=== PATIENT | female | born 1955 | race Caucasian/White ===

== ENCOUNTER 2018-01-27 21:15 | Inpatient (IN) ==
[2018-01-27] MEDS ORDERED: Ipratropium/Albuterol Neb 3 ML IH ONE (21:31)
--- NOTE | 2018-01-27 21:42 | Emergency Department Note ---
Disposition Clinical Impression: Acute dyspnea Community acquired pneumonia Qualifiers: Laterality: left Lung location: unspecified part of lung Qualified Code(s): J18.9 - Pneumonia, unspecified organism Fever Qualifiers: Fever type: unspecified Qualified Code(s): R50.9 - Fever, unspecified Disposition: Admitted As Inpatient Condition: Undetermined Referrals: Landon Champion MD [Primary Care Provider] - Forms: ED Satisfaction Letter Time of Disposition: 00:56 SOB HPI - General Chief Complaint: ED Shortness of Breath/Dyspnea Stated Complaint: SOB/Wheezy Time Seen by Provider: 01/27/18 21:27 Source: patient Mode of arrival: ambulatory Limitations: no limitations Nursing Notes Reviewed: Yes Vital Signs Reviewed: Yes - History of Present Illness 62-year-old female arrives to the emergency department with complaint of cough and shortness of breath. The patient states that she was recently diagnosed with a left lower lobe pneumonia was treated with Augmentin. The patient states that she is continued to experience symptoms has progressively worsened over the past 72 hours. The patient states she has had intermittent fever since then and her last fever was roughly 1 day ago when it was 101 degrees Fahrenheit. She admits to intermittent episodes of hemoptysis which is not unusual for her. The patient denies any unilateral leg swelling, DVT or PE, recent surgeries or recent immobilizations. Patient denies any other complaints at this time. She is resting comfortably in the room is not hypoxic. - Related Data Home Medications Medication Instructions Recorded Confirmed Albuterol Sulfate [Proair Hfa] 2 puff IH Q4H PRN 09/16/16 12/05/16 Budesonide/Formoterol 160/4.5 2 puff IH BIDR 09/16/16 12/05/16 [Symbicort 160/4.5] Cholecalciferol (D-3) [Vitamin D] 2,000 unit PO DAILY 09/16/16 12/05/16 Escitalopram [Lexapro] 20 mg PO DAILY 09/16/16 12/05/16 Imipramine HCl [Tofranil] 25 mg PO HS 09/16/16 12/05/16 Levothyroxine [Levothyroxine 137 mcg PO DAILY 09/16/16 12/05/16 Sodium] Meloxicam [Mobic] 15 mg PO DAILY 09/16/16 12/05/16 Ropinirole HCl [Requip] 0.5 mg PO HS 09/16/16 12/05/16 Cyclobenzaprine [Flexeril] 10 mg PO HS 12/05/16 12/05/16 Tadalafil [Cialis] 5 mg PO DAILY 12/05/16 12/05/16 Previous Rx's Medication Instructions Recorded Azithromycin [Zithromax] 250 - 500 mg PO DAILY #6 tablet 09/13/17 Benzonatate [Tessalon] 200 mg PO TID PRN #30 capsule 09/13/17 predniSONE [PredniSONE] 40 mg PO DAILY #10 tablet 09/13/17 Amoxicillin/Clavulanate [Augmentin] 875 mg PO BIDWM #20 tablet 01/10/18 Allergies Allergy/AdvReac Type Severity Reaction Status Date / Time morphine Allergy Redness of Verified 01/10/18 15:49 Skin Iodinated Contrast- Oral and AdvReac Flushing Verified 01/10/18 15:49 IV Dye All systems ED: reviewed and negative except as stated. Constitutional: Reports: fever. Denies: chills, weakness ENT ED: Denies: congestion Cardiovascular: Denies: chest pain, dyspnea on exertion Respiratory: Reports: cough, dyspnea, sputum production. Denies: wheezes Gastrointestinal: Denies: abdominal pain, nausea, vomiting Genitourinary: Denies: urgency, dysuria Musculoskeletal: Denies: back pain Integumentary: Denies: rash Neurological: Denies: headache Past Medical History - Past Medical History Attestation: Yes The following information was validated with the patient. Source: patient, old records reviewed Medical history: Reports: arthritis, COPD, fibromyalgia, GERD, thyroid disease, other Surgical history: Reports: cholecystectomy (1977), hysterectomy (with unilateral salpingo-oophorectomy 2010), knee replacement, orthopedic, other ( Left rotator cuff; Back laminectomy L4-L5; surgery to foot, toes, ankle), other (Previous trach; Tonsillectomy; Brain aneurysm repair [facility] 05/12/2014; Inner stimulator for bladder Dr. 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 history: Reports: anxiety, depression [employer]WE[employer] H[employer]MER history: Reports: bilateral tubal ligation - Social History Smoking Status: Never smoker Smokeless Tobacco Status: No Alcohol use: Reports: none Drug use: Reports: none Physical Exam - General Limitations: no limitations General appearance: alert, in no apparent distress - Head Head exam: atraumatic, normocephalic, normal inspection - Eye Eye exam: Present: normal appearance, PERRL, EOMI - ENT ENT exam: normal exam, normal oropharynx, mucous membranes moist - Neck Neck exam: Present: normal inspection, full ROM, trachea midline - Chest Chest inspection: Present: normal inspection, symmetric chest wall rise - Respiratory Respiratory exam: Present: other (Decreased sounds on left compared to right) - Cardiovascular Cardiovascular exam: Present: regular rate, normal rhythm, normal heart sounds - Abdominal Exam Abdominal exam: Present: soft, Non-Tender. Absent: tenderness, distention, guarding, rebound, rigidity - Extremities Exam Extremities exam: Present: normal inspection, full ROM. Absent: tenderness, pedal edema - Neurological Exam Neurological exam: Present: alert, oriented X3 - Skin Skin exam: Present: warm, dry, intact, normal color Course Vital Signs Temperature 98.1 F 01/27/18 21:21 Pulse Rate 77 01/27/18 21:21 Respiratory Rate 20 01/27/18 21:21 Blood Pressure 154/84 01/27/18 21:21 O2 Sat by Pulse Oximetry 97 01/27/18 21:21 Temperature 98.1 F 01/27/18 21:21 Pulse Rate 88 01/27/18 22:50 Respiratory Rate 18 01/27/18 22:50 Blood Pressure 139/87 01/27/18 22:50 O2 Sat by Pulse Oximetry 94 01/27/18 22:50 Oxygen Delivery Oxygen Delivery Room Air Shortness of Breath/Dyspnea - [facility] Narrative Medical decision making narrative: Workup in the emergency department demonstrates left lingular pneumonia. Given the patient's failed outpatient treatment we will start the patient on levofloxacin admit the patient to the hospital. The patient was accepted by Dr. Thao. No further questions or concerns noted. - Medical Records Medical records reviewed: Yes I reviewed the patient's medical records. - Lab Data Lab results reviewed: Yes I reviewed the patient's lab results. Result diagrams: 01/28/18 00:09 01/28/18 00:09 Lab Results 01/28/18 01/28/18 Range/Units 00:09 00:09 WBC 10.5 (4.3-11.1) K/mcL RBC 4.70 (3.82-4.97) M/mcL Hgb 13.9 (11.5-15.4) g/dL Hct 42.0 (35.3-44.9) % MCV 89.4 (83.0-100.0) fL MCH 29.6 (28.0-33.3) pg MCHC 33.1 (31.6-35.5) g/dL RDW 12.9 (11.5-14.5) % Plt Count 225 (140-400) K/mcL MPV 10.8 (9.4-12.4) fL Immature Gran % 0.4 (0-4) % Seg Neutrophils % 73.2 % Lymphocytes % 19.5 % Monocytes % 5.8 % Eosinophils % 0.8 % Basophils % 0.3 % Neutrophils # 7.7 (1.6-8.9) K/mcL Lymphocytes # 2.0 (0.6-4.6) K/mcL Monocytes # 0.6 (0.0-1.3) K/mcL Eosinophils # 0.1 (0.0-0.6) K/mcL Basophils # 0.0 (0.0-0.2) K/mcL Sodium 136 (136-145) mEq/L Potassium 3.4 L (3.5-5.1) mEq/L Chloride 103 (98-107) mEq/L Carbon Dioxide 28 (23-29) mEq/L BUN 13 (8-23) mg/dL Creatinine 0.76 (0.60-1.20) mg/dL Est GFR ( Amer) > 60 (> 60) Est GFR (Non-Af Amer) > 60 (> 60) BUN/Creatinine Ratio 17 (6-26) Glucose 125 H (70-105) mg/dL Calculated Osmolality 284 (280-300) Calcium 9.7 (8.6-10.3) mg/dL - Radiology Data Radiology results reviewed: Yes I reviewed the patient's radiology results. Chest X-Ray 01/27/18 21:31 IMPRESSION: Mild improvement in left mid lung pneumonia. D/ / Jp Humphries MD / Jp Humphries MD Interpreting Provider: Jp Humphries MD Chest CT 01/27/18 21:44 IMPRESSION: Confluent airspace disease with air bronchograms in the lingula consistent with pneumonia. Mildly prominent mediastinal lymph nodes are likely reactive. Continued follow-up to complete clearing is recommended. No evidence of an obstructing bronchial lesion. Mild narrowing of the left mainstem bronchus like related to mucous. Stable 2.3 cm splenic artery aneurysm. D/ / Charanjit Wadsworth MD / Charanjit Wadsworth MD Interpreting Provider: Charanjit Wadsworth MD
--- NOTE | 2018-01-27 22:05 | Emergency Department Note ---
Disposition Clinical Impression: Community acquired pneumonia, Acute dyspnea, Fever Disposition: Admitted As Inpatient Condition: Undetermined General Adult HPI - General Chief complaint: ED Shortness of Breath/Dyspnea Stated complaint: SOB/Wheezy Time Seen by Provider: 01/27/18 21:27 Source: patient Mode of arrival: ambulatory Limitations: no limitations Nursing Notes Reviewed: Yes Vital Signs Reviewed: Yes - History of Present Illness Pain Scale: 3 - Related Data Home Medications Medication Instructions Recorded Confirmed Albuterol Sulfate [Proair Hfa] 2 puff IH Q4H PRN 09/16/16 12/05/16 Budesonide/Formoterol 160/4.5 2 puff IH BIDR 09/16/16 12/05/16 [Symbicort 160/4.5] Cholecalciferol (D-3) [Vitamin D] 2,000 unit PO DAILY 09/16/16 12/05/16 Escitalopram [Lexapro] 20 mg PO DAILY 09/16/16 12/05/16 Imipramine HCl [Tofranil] 25 mg PO HS 09/16/16 12/05/16 Levothyroxine [Levothyroxine 137 mcg PO DAILY 09/16/16 12/05/16 Sodium] Meloxicam [Mobic] 15 mg PO DAILY 09/16/16 12/05/16 Ropinirole HCl [Requip] 0.5 mg PO HS 09/16/16 12/05/16 Cyclobenzaprine [Flexeril] 10 mg PO HS 12/05/16 12/05/16 Tadalafil [Cialis] 5 mg PO DAILY 12/05/16 12/05/16 Previous Rx's Medication Instructions Recorded Azithromycin [Zithromax] 250 - 500 mg PO DAILY #6 tablet 09/13/17 Benzonatate [Tessalon] 200 mg PO TID PRN #30 capsule 09/13/17 predniSONE [PredniSONE] 40 mg PO DAILY #10 tablet 09/13/17 Amoxicillin/Clavulanate [Augmentin] 875 mg PO BIDWM #20 tablet 01/10/18 Allergies Allergy/AdvReac Type Severity Reaction Status Date / Time morphine Allergy Redness of Verified 01/10/18 15:49 Skin Iodinated Contrast- Oral and AdvReac Flushing Verified 01/10/18 15:49 IV Dye Constitutional: Reports: fever. Denies: chills, weakness ENT ED: Denies: congestion Cardiovascular: Denies: chest pain, dyspnea on exertion Respiratory: Reports: cough, dyspnea, sputum production. Denies: wheezes Gastrointestinal: Denies: abdominal pain, nausea, vomiting Genitourinary: Denies: urgency, dysuria Musculoskeletal: Denies: back pain Integumentary: Denies: rash Neurological: Denies: headache Past Medical History - Past Medical History Medical history: Reports: arthritis, COPD, fibromyalgia, GERD, thyroid disease, other Surgical history: Reports: cholecystectomy (1977), hysterectomy (with unilateral salpingo-oophorectomy 2010), knee replacement, orthopedic, other ( Left rotator cuff; Back laminectomy L4-L5; surgery to foot, toes, ankle), other (Previous trach; Tonsillectomy; Brain aneurysm repair [facility] 05/12/2014; Inner stimulator for bladder Dr. 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 - Social History Smoking Status: Never smoker Smokeless Tobacco Status: No Alcohol use: Reports: none Drug use: Reports: none Physical Exam - General Limitations: no limitations General appearance: alert, in no apparent distress Course Vital Signs Temperature 98.1 F 01/27/18 21:21 Pulse Rate 77 01/27/18 21:21 Respiratory Rate 20 01/27/18 21:21 Blood Pressure 154/84 01/27/18 21:21 O2 Sat by Pulse Oximetry 97 01/27/18 21:21 Temperature 98.1 F 01/27/18 21:21 Pulse Rate 88 01/27/18 22:50 Respiratory Rate 18 01/27/18 22:50 Blood Pressure 139/87 01/27/18 22:50 O2 Sat by Pulse Oximetry 94 01/27/18 22:50 Oxygen Delivery Oxygen Delivery Room Air Medical Decision Making - Lab Data Result diagrams: 01/28/18 00:09 01/28/18 00:09 Lab Results 01/28/18 01/28/18 Range/Units 00:09 00:09 WBC 10.5 (4.3-11.1) K/mcL RBC 4.70 (3.82-4.97) M/mcL Hgb 13.9 (11.5-15.4) g/dL Hct 42.0 (35.3-44.9) % MCV 89.4 (83.0-100.0) fL MCH 29.6 (28.0-33.3) pg MCHC 33.1 (31.6-35.5) g/dL RDW 12.9 (11.5-14.5) % Plt Count 225 (140-400) K/mcL MPV 10.8 (9.4-12.4) fL Immature Gran % 0.4 (0-4) % Seg Neutrophils % 73.2 % Lymphocytes % 19.5 % Monocytes % 5.8 % Eosinophils % 0.8 % Basophils % 0.3 % Neutrophils # 7.7 (1.6-8.9) K/mcL Lymphocytes # 2.0 (0.6-4.6) K/mcL Monocytes # 0.6 (0.0-1.3) K/mcL Eosinophils # 0.1 (0.0-0.6) K/mcL Basophils # 0.0 (0.0-0.2) K/mcL Sodium 136 (136-145) mEq/L Potassium 3.4 L (3.5-5.1) mEq/L Chloride 103 (98-107) mEq/L Carbon Dioxide 28 (23-29) mEq/L BUN 13 (8-23) mg/dL Creatinine 0.76 (0.60-1.20) mg/dL Est GFR ( Amer) > 60 (> 60) Est GFR (Non-Af Amer) > 60 (> 60) BUN/Creatinine Ratio 17 (6-26) Glucose 125 H (70-105) mg/dL Calculated Osmolality 284 (280-300) Calcium 9.7 (8.6-10.3) mg/dL Critical Care Time Critical Care Time: No Attestation Statement - Attestation Attestation: I, Beltran Kwan MD, personally evaluated this patient and discussed their management with the resident physician. I reviewed the resident's note and agree with the documented findings, medical decision making, and plan of care. 62-year-old female presents to the emergency department with a complaint of productive cough with cloudy blood tinged sputum and intermittent fever. She has had these symptoms for several weeks. She was seen in over 2 weeks ago at urgent care and had a chest x-ray which showed a left mid lung infiltrate with questionable underlying mass. She was treated with Augmentin for 10 days which she has finished. She presents here tonight complaining that she has continued to run intermittent fevers and continued to have the cough with productive sputum and blood tinged sputum. She complains of wheezing and shortness of breath. On examination patient is a well-developed obese elderly female in no acute distress. She is alert and oriented 3. There is no cyanosis or diaphoresis. Chest is nontender to palpation. Breath sounds are equal bilaterally. No definite rales or wheezes noted. Heart regular rate and rhythm. Abdomen is soft and nontender with normal bowel sounds. Labs reviewed. Chest x-ray shows some mild improvement in the left mid lung pneumonia. A CT was obtained which showed the left lingula pneumonia and did not show any discrete mass. Since patient has already had a 10 day course of outpatient antibiotics we will go ahead and admit the patient for failed outpatient treatment of left pneumonia. The hospitalist, Dr. Thao, was consulted and accepted admission of the patient.
[2018-01-27] MEDS ORDERED: Levofloxacin 750 MG/150 ML 750 MG/150 ML BAG IVPB ONE (23:37)
[2018-01-28 00:20] LABS: Basophils % 0.3 %; Eosinophils # 0.1 K/mcL (0.0-0.6); Eosinophils % 0.8 %; Hemoglobin 13.9 g/dL (11.5-15.4); Immature Granulocytes % 0.4 % (0-4); Lymphocytes % 19.5 %; Mean Corpuscular HGB Conc 33.1 g/dL (31.6-35.5); Mean Corpuscular Hemoglobin 29.6 pg (28.0-33.3); Mean Corpuscular Volume 89.4 fL (83.0-100.0); Mean Platelet Volume 10.8 fL (9.4-12.4); Monocytes # 0.6 K/mcL (0.0-1.3); Monocytes % 5.8 %; Neutrophils # 7.7 K/mcL (1.6-8.9); Platelet Count 225 K/mcL (140-400); Red Cell Distribution Width 12.9 % (11.5-14.5); Segmented Neutrophils % 73.2 %
[2018-01-28 00:39] LABS: BUN/Creatinine Ratio 17 (6-26); Blood Urea Nitrogen 13 mg/dL (8-23); Calcium 9.7 mg/dL (8.6-10.3); Carbon Dioxide 28 mEq/L (23-29); Chloride 103 mEq/L (98-107); Glucose 125 mg/dL (70-105); Osmolality,Calculated 284 (280-300); Potassium 3.4 mEq/L (3.5-5.1); Sodium 136 mEq/L (136-145); eGFR For African Americans > 60 (> 60); eGFR For Non-African Americans > 60 (> 60)
[2018-01-28] MEDS ORDERED: Naloxone 0.4 MG/ML INJ IVP PRN (01:28)
[2018-01-28] MEDS ORDERED: Acetaminophen 325 MG TABLET PO PRN (01:28)
--- NOTE | 2018-01-28 01:34 | Internal Med History&Physical ---
Date of Encounter: 01/28/18 Time of Encounter: Internal Medicine - H&P: HPI Chief complaint: Cough Admitted From: Emergency Dept Plans for Post Hospital Care: Home History of present illness: Ms. Naylor is a 62 year old female with history of arthritis, COPD, fibromyalgia, GERD, Hypothyroidism, Splenic aneurysm presented to the ED to get evaluated for fever and unresolved shortness of breath and cough. Cough is productive of pinkish to dark sputum. Symptoms have been present for a couple of weeks or so. Went to urgent care and given Augmentin for 10 days which she finished with symptoms not improving. Fever is as high as 102 at home. In the ED was afebrile and hemodynamically stable. Laboratory workup showed only hypokalemia with a potassium 3.4. A chest x-ray showed improvement in her left lung pneumonia. CT chest showed left lingula pneumonia with mildly prominent mediastinal nodes which were likely reactive. She was given IV Levaquin and is being admitted for failed outpatient pneumonia treatment. Denies nausea, vomiting, chest pain, blurry vision, headache, abdominal pain, diarrhea, constipation, urinary symptoms, or neurological symptoms. Past Med Surg Social Fam HX - Past Medical History Medical history: arthritis, COPD, fibromyalgia, GERD, thyroid disease, other Psychiatric history: anxiety, depression - Past Surgical History Surgical History: cholecystectomy (1977), hysterectomy (with unilateral salpingo -oophorectomy 2010), knee replacement, orthopedic, other (Left rotator cuff; Back laminectomy L4-L5; surgery to foot, toes, ankle), other (Previous trach; Tonsillectomy; Brain aneurysm repair [facility] 05/12/2014; Inner stimulator for bladder Dr. Lopez 03/2015), vascular surgery - Social History Smoking Status: Never smoker Smokeless Tobacco Status: No Alcohol use: none Drug use: none - Family History Mother Family Member Ethnicity: Non- Living Status: Hx Family Cardiac Disorders: No Hx Family Respiratory Disorders: No Hx Family Cancer: No Hx Family GI Disorders: No Hx Family Endocrine Disorder: No Hx Family Neuromuscular Disorders: Yes Hx Family Neurologic Disorders: No Hx Family HEENT Disorders: No Hx Family Autoimmune Disorders: No Father Living Status: Internal Medicine - H&P: Meds Albuterol Sulfate [Proair Hfa] 2 puff IH Q4H PRN 09/16/16 [History] Budesonide/Formoterol 160/4.5 [Symbicort 160/4.5] 2 puff IH BIDR 09/16/16 [ History] Cholecalciferol (D-3) [Vitamin D] 2,000 unit PO DAILY 09/16/16 [History] Escitalopram [Lexapro] 20 mg PO DAILY 09/16/16 [History] Imipramine HCl [Tofranil] 25 mg PO HS 09/16/16 [History] Levothyroxine [Levothyroxine Sodium] 137 mcg PO DAILY 09/16/16 [History] Meloxicam [Mobic] 15 mg PO DAILY 09/16/16 [History] Ropinirole HCl [Requip] 0.5 mg PO HS 09/16/16 [History] Cyclobenzaprine [Flexeril] 10 mg PO HS 12/05/16 [History] Tadalafil [Cialis] 5 mg PO DAILY 12/05/16 [History] Azithromycin [Zithromax] 250 - 500 mg PO DAILY #6 tablet 09/13/17 [Rx] Benzonatate [Tessalon] 200 mg PO TID PRN #30 capsule 09/13/17 [Rx] predniSONE [PredniSONE] 40 mg PO DAILY #10 tablet 09/13/17 [Rx] Amoxicillin/Clavulanate [Augmentin] 875 mg PO BIDWM #20 tablet 01/10/18 [Rx] 3 Allergy/AdvReac Type Severity Reaction Status Date / Time morphine Allergy Redness of Verified 01/10/18 15:49 Skin Iodinated Contrast- Oral and AdvReac Flushing Verified 01/10/18 15:49 IV Dye All Systems PM: A 10-system review of systems was performed and is negative for pertinent findings except as documented above in the HPI. Review of systems: All systems reviewed are negative except as mentioned above - Constitutional Vitals: Temp Pulse Resp BP Pulse Ox 98.1 F 88 16 142/88 94 01/27/18 21:21 01/27/18 22:50 01/28/18 01:22 01/28/18 01:22 01/27/18 22:50 Exam: GEN: NAD HEENT: AT, NC, No cyanosis, oral mucosa is moist, No JVD Lymphatics: No lymphadenoapthy Eyes: Extrocular muscles intact, anicteric CVS:RRR. S1, S2, No m/r/g RESP: Coarse on the left side. No wheezes. ABD: Soft, NT, ND, +BS EXT: No edema, No rashes, 2+ DP NEURO: Nonfocal, CN II-XII intact, No focal motor or sensory deficits Psych: Cooperative, Not anxious or depressed Internal Med - H&P Results - Labs CBC & Chem 7: 01/28/18 00:09 01/28/18 00:09 - Assessment and plan (1) Community acquired pneumonia Current Visit: Yes Status: Acute Assessment and plan: Will admit due to failed outpatient treatment. Will continue IV levaquin started in the ED. Check sputum. Check respiratory panel. Check urine strep and Legionella. Follow-up on blood cultures collected in the ED.. Gentle hydration. Patient is not hypoxic. Qualifiers: Laterality: left Lung location: unspecified part of lung Qualified Code(s ): J18.9 - Pneumonia, unspecified organism (2) Hypothyroidism Current Visit: Yes Status: Acute Assessment and plan: Resume home thyroid pill Qualifiers: Hypothyroidism type: unspecified Qualified Code(s): E03.9 - Hypothyroidism , unspecified (3) COPD (chronic obstructive pulmonary disease) Current Visit: No Status: Chronic Assessment and plan: Not in exacerbation. Resume inhalers. Qualifiers: COPD type: unspecified COPD Qualified Code(s): J44.9 - Chronic obstructive pulmonary disease, unspecified (4) DVT prophylaxis Current Visit: No Status: Acute Assessment and plan: heparin SQ - Time Spent With Patient Total time spent is greater than 50% in coordination of care (as documented) at patient's floor/unit and/or counseling patient:
[2018-01-28] MEDS: 0.9 % Sodium Chloride 1,000 ML IVC SCH ×2 (03:01→16:51)
[2018-01-28] MEDS: Ipratropium/Albuterol Neb 3 ML IH SCH ×4 (04:12→22:12)
[2018-01-28 04:39] LABS: Basophils % 0.4 %; Eosinophils # 0.1 K/mcL (0.0-0.6); Eosinophils % 0.9 %; Hematocrit 40.2 % (35.3-44.9); Hemoglobin 12.9 g/dL (11.5-15.4); Immature Granulocytes % 0.4 % (0-4); Lymphocytes # 1.4 K/mcL (0.6-4.6); Lymphocytes % 18.1 %; Mean Corpuscular HGB Conc 32.1 g/dL (31.6-35.5); Mean Corpuscular Hemoglobin 28.9 pg (28.0-33.3); Mean Corpuscular Volume 89.9 fL (83.0-100.0); Mean Platelet Volume 11.2 fL (9.4-12.4); Monocytes # 0.7 K/mcL (0.0-1.3); Monocytes % 8.4 %; Neutrophils # 5.7 K/mcL (1.6-8.9); Platelet Count 199 K/mcL (140-400); Red Blood Count 4.47 M/mcL (3.82-4.97); Segmented Neutrophils % 71.8 %
[2018-01-28 04:57] LABS: BUN/Creatinine Ratio 18 (6-26); Blood Urea Nitrogen 14 mg/dL (8-23); Calcium 9.4 mg/dL (8.6-10.3); Carbon Dioxide 25 mEq/L (23-29); Chloride 105 mEq/L (98-107); Glucose 116 mg/dL (70-105); Magnesium 1.8 mg/dL (1.6-2.6); Osmolality,Calculated 285 (280-300); Potassium 3.5 mEq/L (3.5-5.1); Sodium 137 mEq/L (136-145); eGFR For African Americans > 60 (> 60); eGFR For Non-African Americans > 60 (> 60)
[2018-01-28] MEDS: *HR* Heparin 5,000 UNIT/ML VIAL SQ SCH ×3 (05:43→20:22)
[2018-01-28 06:34] LABS: Adenovirus Not Detected (Not Detect); Coronavirus 229E Not Detected (Not Detect); Coronavirus HKU1 Not Detected (Not Detect); Coronavirus NL63 Not Detected (Not Detect); Coronavirus OC43 Not Detected (Not Detect); Human Metapneumovirus Not Detected (Not Detect); Human Rhinovirus/Enterovirus Not Detected (Not Detect); Influenza A Subtype 2009 H1 Not Detected (Not Detect); Influenza A Untypeable Not Detected (Not Detect); Influenza B Not Detected (Not Detect)
[2018-01-28 06:35] LABS: Bordetella Pertussis Not Detected (Not Detect); Chlamydophila pneumoniae Not Detected (Not Detect); Mycoplasma pneumoniae Not Detected (Not Detect); Parainfluenza Virus 1 Not Detected (Not Detect); Parainfluenza Virus 2 Not Detected (Not Detect); Parainfluenza Virus 3 Not Detected (Not Detect); Parainfluenza Virus 4 Not Detected (Not Detect); Respiratory Syncytial Virus Not Detected (Not Detect)
[2018-01-28] MEDS ORDERED: Benzonatate 100 MG CAPSULE PO PRN (08:05)
[2018-01-28] MEDS: Budesonide/Formoterol 160/4.5 MDI IH SCH ×2 (10:29→22:12)
[2018-01-28] MEDS: Levofloxacin 750 MG/150 ML 750 MG/150 ML BAG IVPB SCH (16:52)
[2018-01-28] MEDS: rOPINIRole 1 MG TABLET PO SCH (20:21)
[2018-01-29] MEDS: Ipratropium/Albuterol Neb 3 ML IH SCH ×4 (04:33→21:29)
[2018-01-29] MEDS: *HR* Heparin 5,000 UNIT/ML VIAL SQ SCH ×3 (06:02→22:11)
[2018-01-29] MEDS: 0.9 % Sodium Chloride 1,000 ML IVC SCH ×3 (08:54→15:54)
--- NOTE | 2018-01-29 09:28 | Internal Med Progress Note ---
Date of Encounter: 01/29/18 Time of Encounter: 09:00 - Assessment and plan (1) Community acquired pneumonia Current Visit: Yes Status: Acute Assessment and plan: Lingular pneumonia, community-acquired, failed 10 days of Augmentin. Plan #1 Continue intravenous Levaquin #2 obtained respiratory cultures, urine antigens for Legionella and pneumococcus #3 follow blood cultures sent from the emergency room Qualifiers: Laterality: left Lung location: unspecified part of lung Qualified Code(s ): J18.9 - Pneumonia, unspecified organism (2) COPD (chronic obstructive pulmonary disease) Current Visit: No Status: Chronic Assessment and plan: Resume home Symbicort and bronchodilators as needed. May benefit from LAMA instead of Symbicort as first line therapy for COPD. Deferred to outpatient provider. Qualifiers: COPD type: unspecified COPD Qualified Code(s): J44.9 - Chronic obstructive pulmonary disease, unspecified (3) Hypothyroidism Current Visit: Yes Status: Acute Assessment and plan: Resume home thyroid pill Qualifiers: Hypothyroidism type: unspecified Qualified Code(s): E03.9 - Hypothyroidism , unspecified (4) DVT prophylaxis Current Visit: No Status: Acute Assessment and plan: heparin SQ - Time Spent With Patient Total time spent is greater than 50% in coordination of care (as documented) at patient's floor/unit and/or counseling patient: 25 - 35 minutes - Subjective Interval history: Still reports dyspnea and cough with pink expectoration. No events overnight. - Constitutional Vitals: Temp Pulse Resp BP Pulse Ox 97.8 F 71 17 138/78 95 01/29/18 07:06 01/29/18 07:06 01/29/18 07:06 01/29/18 07:06 01/29/18 07:06 General appearance: Present: A&O X 3 Exam: Physical exam Gen: Comfortable, laying in bed, in no visible distress HEENT: Normocephalic, atraumatic. No conjunctival icterus. Moist oral mucosa. Neck: Supple Lungs: Clear to auscultation, no foreign sounds Heart: Normal S1-S2, no murmurs rubs or gallops Abdomen: Normoactive bowel sounds, no guarding rigidity or tenderness Extremities: No edema clubbing or cyanosis Neuro: Alert oriented 3, no focal deficits Skin: No skin lesions Internal Medicine: Result - Labs CBC & Chem 7: 01/28/18 03:52 01/28/18 03:52 Consult Discharge Plan - Plan Referrals: Landon Champion MD [Primary Care Provider] -
[2018-01-29] MEDS: Budesonide/Formoterol 160/4.5 MDI IH SCH ×2 (10:55→21:29)
[2018-01-29] MEDS: Levofloxacin 750 MG/150 ML 750 MG/150 ML BAG IVPB SCH (17:23)
[2018-01-29] MEDS: rOPINIRole 1 MG TABLET PO SCH (20:20)
[2018-01-30] MEDS: 0.9 % Sodium Chloride 1,000 ML IVC SCH (03:33)
[2018-01-30] MEDS: Ipratropium/Albuterol Neb 3 ML IH SCH ×2 (04:09→10:57)
[2018-01-30 05:19] LABS: Basophils % 0.7 %; Eosinophils # 0.2 K/mcL (0.0-0.6); Eosinophils % 4.5 %; Hematocrit 36.2 % (35.3-44.9); Hemoglobin 11.5 g/dL (11.5-15.4); Lymphocytes # 1.5 K/mcL (0.6-4.6); Lymphocytes % 35.1 %; Mean Corpuscular HGB Conc 31.8 g/dL (31.6-35.5); Mean Corpuscular Hemoglobin 28.8 pg (28.0-33.3); Mean Corpuscular Volume 90.5 fL (83.0-100.0); Mean Platelet Volume 11.2 fL (9.4-12.4); Monocytes # 0.3 K/mcL (0.0-1.3); Monocytes % 7.1 %; Neutrophils # 2.2 K/mcL (1.6-8.9); Platelet Count 178 K/mcL (140-400); Red Cell Distribution Width 12.9 % (11.5-14.5); Segmented Neutrophils % 52.6 %
[2018-01-30 05:32] LABS: BUN/Creatinine Ratio 20 (6-26); Blood Urea Nitrogen 12 mg/dL (8-23); Calcium 9.2 mg/dL (8.6-10.3); Carbon Dioxide 22 mEq/L (23-29); Chloride 111 mEq/L (98-107); Glucose 100 mg/dL (70-105); Osmolality,Calculated 288 (280-300); Sodium 139 mEq/L (136-145); eGFR For African Americans > 60 (> 60); eGFR For Non-African Americans > 60 (> 60)
[2018-01-30] MEDS: *HR* Heparin 5,000 UNIT/ML VIAL SQ SCH (05:36)
--- NOTE | 2018-01-30 10:32 | Discharge Summary ---
- NOTES TO OUTPATIENT PROVIDER Notes to Outpatient Provider: f/u with PCP in one week. If you get more SOB / wheezing you can take Prednisone 40mg PO daily x 5 days Orders not resulted at time of discharge: Pending orders 01/29/18 09:19 Culture,Respiratory [RM] Routine Date of Encounter: 01/30/18 Time of Encounter: 10:30 - Discharge Diagnosis (1) Community acquired pneumonia Priority: Primary Status: Acute Qualifiers: Laterality: left Lung location: unspecified part of lung Qualified Code(s ): J18.9 - Pneumonia, unspecified organism (2) DVT prophylaxis Priority: Secondary Status: Acute (3) COPD (chronic obstructive pulmonary disease) Priority: Secondary Status: Chronic Qualifiers: COPD type: unspecified COPD Qualified Code(s): J44.9 - Chronic obstructive pulmonary disease, unspecified (4) Hypothyroidism Priority: Secondary Status: Acute Qualifiers: Hypothyroidism type: unspecified Qualified Code(s): E03.9 - Hypothyroidism , unspecified Hospital course: Ms. Naylor is a 62 year old female with history of arthritis, COPD, fibromyalgia, GERD, Hypothyroidism, Splenic aneurysm presented to the ED to get evaluated for fever and unresolved shortness of breath and cough. Cough is productive of pinkish to dark sputum. Pt was admitted here for pneumonia and started her on empirical abx Levaquin. Pt started breathing comfortably on RA. She feels like she is back to baseline. She does not have significant wheezing at this point. However I gave her an Rx for short course Prednisone to use it as needed basis if she gets more SOB once she goes home. Will d/c her home in stable condition today. - Time Spent with Patient Total time spent providing and/or coordinating discharge services: - Discharge Medications Prescriptions: levoFLOXacin [Levaquin] 750 mg PO DAILY@1800 #4 tablet predniSONE [PredniSONE] 40 mg PO DAILY 5 Days #10 tablet Home Medications: Albuterol Sulfate [Proair Hfa] 2 puff IH Q4H PRN 09/16/16 [History] Budesonide/Formoterol 160/4.5 [Symbicort 160/4.5] 2 puff IH BIDR 09/16/16 [ History] Escitalopram [Lexapro] 20 mg PO DAILY 09/16/16 [History] Imipramine HCl [Tofranil] 25 mg PO HS 12/16/16 [History] Levothyroxine [Levothyroxine Sodium] 137 mcg PO DAILY 09/16/16 [History] Meloxicam [Mobic] 15 mg PO DAILY 09/16/16 [History] Ropinirole HCl [Requip] 0.5 mg PO HS 09/16/16 [History] Tadalafil [Cialis] 5 mg PO DAILY 12/05/16 [History] Desmopressin Acetate [Ddavp] 0.2 mg PO BID 01/28/18 [History] Benzonatate [Tessalon] 100 mg PO TID PRN #15 capsule 01/30/18 [Rx] levoFLOXacin [Levaquin] 750 mg PO DAILY@1800 #4 tablet 01/30/18 [Rx] predniSONE [PredniSONE] 40 mg PO DAILY 5 Days #10 tablet 01/30/18 [Rx] Allergies/Adverse Reactions: 3 Allergy/AdvReac Type Severity Reaction Status Date / Time morphine Allergy Redness of Verified 01/28/18 11:05 Skin Iodinated Contrast- Oral and AdvReac Flushing Verified 01/28/18 11:05 IV Dye Date of admission: 01/29/18 09:16 Primary care physician: Landon Champion MD - Constitutional Vitals: Temp Pulse Resp BP Pulse Ox 97.9 F 77 15 160/75 94 01/30/18 06:51 01/30/18 06:51 01/30/18 06:51 01/30/18 06:51 01/30/18 08:31 General appearance: Present: A&O X 3 - Head Head exam: Present: atraumatic, normal inspection - Neck Neck exam general surgery: Present: supple - Respiratory Respiratory exam: Present: decreased breath sounds. Absent: rales, respiratory distress, rhonchi, wheezes - Cardiovascular Cardiovascular exam: Present: RRR, +S1, +S2. Absent: tachycardia - GI/Abdominal GI/Abdominal exam: Present: normal bowel sounds, soft. Absent: rebound, rigid, tenderness - Extremities Exam Extremities exam: Absent: calf tenderness, pedal edema, tenderness - Back Exam Back exam: Absent: CVA tenderness (L), CVA tenderness (R) - Neurological Exam Neurological exam: Present: alert, oriented X3 - Psychiatric Psychiatric exam: Present: normal affect, normal mood - Patient Status Disposition: Home, Self-Care Condition: Good Overall status at discharge: patient is back to baseline - Discharge Instructions Follow Up With: Landon Champion MD [Primary Care Provider] - - Diet and Activity Activity: increase activity as tolerated Diet: low salt diet
[2018-01-30] MEDS: Budesonide/Formoterol 160/4.5 MDI IH SCH (10:56)
[2018-01-30 11:09] VITALS: BP 153/65
[2018-01-31] MEDS ORDERED: levoFLOXacin 750 MG TABLET PO SCH (18:00)
== END 2018-01-30 12:59 | disposition home or self-care (01) | DRG 194 ==
LOC: 2ANU 21:15 → EMEROO 21:15 → 2ANU 01-28 01:51 → SUATTDRO 01-29 09:16
PROVIDERS: ADMIT Internal Medicine; ATTEND Family Medicine

== ENCOUNTER 2018-04-02 11:03 | Inpatient (IN) ==
[2018-04-02] MEDS ORDERED: 0.9 % Sodium Chloride 1,000 ML IVC ONE ×4 (11:41→13:50)
[2018-04-02 11:57] LABS: Basophils # 0.1 K/mcL (0.0-0.2); Basophils % 0.4 %; Eosinophils % 0.1 %; Hematocrit 54.8 % (35.3-44.9); Hemoglobin 18.3 g/dL (11.5-15.4); Immature Granulocytes % 0.9 % (0-4); Lymphocytes # 1.5 K/mcL (0.6-4.6); Lymphocytes % 7.4 %; Mean Corpuscular HGB Conc 33.4 g/dL (31.6-35.5); Mean Corpuscular Hemoglobin 28.9 pg (28.0-33.3); Mean Corpuscular Volume 86.6 fL (83.0-100.0); Mean Platelet Volume 11.4 fL (9.4-12.4); Monocytes # 0.4 K/mcL (0.0-1.3); Monocytes % 2.1 %; Neutrophils # 17.8 K/mcL (1.6-8.9); Platelet Count 250 K/mcL (140-400); Red Blood Count 6.33 M/mcL (3.82-4.97); Red Cell Distribution Width 14.4 % (11.5-14.5); Segmented Neutrophils % 89.1 %
--- NOTE | 2018-04-02 12:11 | Emergency Department Note ---
Disposition Clinical Impression: Fever of unknown origin Disposition: Still a Patient Referrals: Landon Champion MD [Primary Care Provider] - General Adult HPI - General Chief complaint: ED Fever Stated complaint: fever,BEST Time Seen by Provider: 04/02/18 11:26 Source: patient, family Limitations: no limitations - History of Present Illness Pain Scale: 6 - Related Data Home Medications Medication Instructions Recorded Confirmed Albuterol Sulfate [Proair Hfa] 2 puff IH Q4H PRN 09/16/16 01/28/18 Budesonide/Formoterol 160/4.5 2 puff IH BIDR 09/16/16 01/28/18 [Symbicort 160/4.5] Escitalopram [Lexapro] 20 mg PO DAILY 09/16/16 01/28/18 Imipramine HCl [Tofranil] 25 mg PO HS 09/16/16 01/28/18 Levothyroxine [Levothyroxine 137 mcg PO DAILY 09/16/16 01/28/18 Sodium] Meloxicam [Mobic] 15 mg PO DAILY 09/16/16 01/28/18 Ropinirole HCl [Requip] 0.5 mg PO HS 09/16/16 01/28/18 Tadalafil [Cialis] 5 mg PO DAILY 12/05/16 01/28/18 Desmopressin Acetate [Ddavp] 0.2 mg PO BID 01/28/18 01/28/18 Previous Rx's Medication Instructions Recorded levoFLOXacin [Levaquin] 750 mg PO DAILY@1800 #4 tablet 01/30/18 predniSONE [PredniSONE] 40 mg PO DAILY 5 Days #10 tablet 01/30/18 Allergies Allergy/AdvReac Type Severity Reaction Status Date / Time morphine Allergy Redness of Verified 01/28/18 11:05 Skin Iodinated Contrast- Oral and AdvReac Flushing Verified 01/28/18 11:05 IV Dye Past Medical History - Past Medical History Medical history: Reports: arthritis, COPD, fibromyalgia, GERD, thyroid disease, other Surgical history: Reports: cholecystectomy, hysterectomy, knee replacement, orthopedic, other, other, vascular surgery Psychiatric history: Reports: anxiety, depression [employer] history: Reports: bilateral tubal ligation - Social History Smoking Status: Never smoker Smokeless Tobacco Status: No Alcohol use: Reports: none Drug use: Reports: none Physical Exam - General Limitations: no limitations General appearance: alert, in no apparent distress Course - Reevaluation(s) Reevaluation #1: Attestation note I examined this patient and my medical decision-making was reviewed with the emergency medicine resident. I agree with the documented findings, disposition and treatment plan as described except to the extent set forth below. Patient seen with emergency medicine resident Dr. Brayden Roman, Please see a copy of his note for details of the H&P, ED evaluation, management and disposition. I have independently evaluated the patient and confirmed appropriate portions of the history and physical exam. Briefly: 62-year-old female history of bronchomalacia presents the emergency department with several days of fever up to 102 sweating decreased appetite feeling fatigued having a nonproductive cough denies dysuria has a frontal headache but no photophobia history of aneurysmal clipping no thunderclap headache no nuchal rigidity. Patient is afebrile tachycardic to about 102 looks flushed and slightly diaphoretic. Patient EKG showed a sinus arrhythmia ischemic changes short [place] interval patient getting screening labs IV fluids chest x-ray urinalysis. Disposition pending. Time: 12:10 Vital Signs Temperature 97.4 F L 04/02/18 11:07 Pulse Rate 101 04/02/18 11:07 Respiratory Rate 22 04/02/18 11:07 Blood Pressure 113/76 04/02/18 11:07 O2 Sat by Pulse Oximetry 96 04/02/18 11:07 Temperature 97.4 F L 04/02/18 11:48 Pulse Rate 101 04/02/18 11:48 Respiratory Rate 22 04/02/18 11:48 Blood Pressure 113/76 04/02/18 11:48 O2 Sat by Pulse Oximetry 96 04/02/18 11:48 Oxygen Delivery Oxygen Delivery Room Air Medical Decision Making - Lab Data Result diagrams: 04/02/18 11:27 Lab Results 04/02/18 Range/Units 11:27 WBC 20.1 H (4.3-11.1) K/mcL RBC 6.33 H (3.82-4.97) M/mcL Hgb 18.3 H (11.5-15.4) g/dL Hct 54.8 H (35.3-44.9) % MCV 86.6 (83.0-100.0) fL MCH 28.9 (28.0-33.3) pg MCHC 33.4 (31.6-35.5) g/dL RDW 14.4 (11.5-14.5) % Plt Count 250 (140-400) K/mcL MPV 11.4 (9.4-12.4) fL Immature Gran % 0.9 (0-4) % Seg Neutrophils % 89.1 % Lymphocytes % 7.4 % Monocytes % 2.1 % Eosinophils % 0.1 % Basophils % 0.4 % Neutrophils # 17.8 H (1.6-8.9) K/mcL Lymphocytes # 1.5 (0.6-4.6) K/mcL Monocytes # 0.4 (0.0-1.3) K/mcL Eosinophils # 0.0 (0.0-0.6) K/mcL Basophils # 0.1 (0.0-0.2) K/mcL
[2018-04-02 12:14] LABS: Alanine Aminotransferase 31 Units/L (7-52); Albumin 4.8 g/dL (3.5-5.7); Albumin/Globulin Ratio 1.2 (1.1-2.2); Alkaline Phosphatase 129 Units/L (34-104); Aspartate Amino Transferase 35 Units/L (13-39); BUN/Creatinine Ratio 16 (6-26); Bilirubin,Total 1.2 mg/dL (0.3-1.0); Blood Urea Nitrogen 16 mg/dL (8-23); Calcium 10.8 mg/dL (8.6-10.3); Carbon Dioxide 20 mEq/L (23-29); Chloride 100 mEq/L (98-107); Globulin 4.1 g/dL (2.4-3.5); Glucose 131 mg/dL (70-105); Osmolality,Calculated 281 (280-300); Sodium 134 mEq/L (136-145); Total Protein 8.9 g/dL (6.4-8.9); Troponin I 0.09 ng/mL (< 0.04); eGFR For African Americans > 60 (> 60); eGFR For Non-African Americans 55 (> 60)
[2018-04-02] MEDS ORDERED: Vancomycin 1,750 MG in 0.9 % Sodium Chloride 250 ML IVPB ONE (12:16)
[2018-04-02] MEDS ORDERED: Cefepime HCl 2,000 MG in 0.9 % Sodium Chloride Mini Bag 100 ML IVPB ONE (12:18)
[2018-04-02] MEDS ORDERED: Ipratropium/Albuterol Neb 3 ML IH ONE (12:19)
[2018-04-02] MEDS ORDERED: Levofloxacin 750 MG/150 ML 750 MG/150 ML BAG IVPB ONE (12:19)
[2018-04-02 12:21] LABS: Potassium 4.8 mEq/L (3.5-5.1)
--- NOTE | 2018-04-02 12:39 | Emergency Department Note ---
Disposition Clinical Impression: Hypoxia, HCAP (healthcare-associated pneumonia), Elevated troponin Disposition: Admitted As Inpatient Condition: Good Referrals: Landon Champion MD [Primary Care Provider] - Forms: ED Satisfaction Letter General Adult HPI - General Chief complaint: ED Fever Stated complaint: fever,BEST Time Seen by Provider: 04/02/18 11:26 Source: patient, family Limitations: no limitations Nursing Notes Reviewed: Yes Vital Signs Reviewed: Yes - History of Present Illness HPI Narrative: 62-year-old female presents emergency department with 2 day history of fever and nausea. Patient also reporting frontal headache. Patient states she has had headache like this in the past. Patient denies any vomiting. She does report having increased urinary frequency. Patient had pneumonia requiring admission in December. She also reports having pneumonia 1 month ago. Pain Scale: 6 - Related Data Home Medications Medication Instructions Recorded Confirmed Albuterol Sulfate [Proair Hfa] 2 puff IH Q4H PRN 09/16/16 04/02/18 Budesonide/Formoterol 160/4.5 2 puff IH BIDR 09/16/16 04/02/18 [Symbicort 160/4.5] Escitalopram [Lexapro] 20 mg PO DAILY 09/16/16 04/02/18 Imipramine HCl [Tofranil] 25 mg PO HS 09/16/16 04/02/18 Levothyroxine [Levothyroxine 137 mcg PO DAILY 09/16/16 04/02/18 Sodium] Meloxicam [Mobic] 15 mg PO DAILY 09/16/16 04/02/18 Ropinirole HCl [Requip] 0.5 mg PO HS 09/16/16 04/02/18 Desmopressin Acetate [Ddavp] 0.2 mg PO HS 01/28/18 04/02/18 Allergies Allergy/AdvReac Type Severity Reaction Status Date / Time morphine Allergy Redness of Verified 01/28/18 11:05 Skin Iodinated Contrast- Oral and AdvReac Flushing Verified 01/28/18 11:05 IV Dye All systems ED: reviewed and negative except as stated. Review of Systems: As Per HPI Constitutional: Reports: fever Cardiovascular: Denies: chest pain Respiratory: Denies: cough, dyspnea, wheezes Gastrointestinal: Reports: nausea. Denies: abdominal pain, vomiting Genitourinary: Denies: urgency, dysuria, frequency Musculoskeletal: Denies: back pain Integumentary: Denies: rash Neurological: Denies: headache, weakness, numbness, paresthesias Past Medical History - Past Medical History Medical history: Reports: arthritis, COPD, fibromyalgia, GERD, thyroid disease, other Surgical history: Reports: cholecystectomy, hysterectomy, knee replacement, orthopedic, other, other, vascular surgery Psychiatric history: Reports: anxiety, depression [employer] history: Reports: bilateral tubal ligation - Social History Smoking Status: Never smoker Smokeless Tobacco Status: No Alcohol use: Reports: none Drug use: Reports: none Physical Exam - General Limitations: no limitations General appearance: alert, in no apparent distress, other (Patient appears diaphoretic) - Head Head exam: atraumatic, normocephalic - Eye Eye exam: Present: EOMI - ENT ENT exam: normal oropharynx, mucous membranes moist - Neck Neck exam: Present: trachea midline - Chest Chest inspection: Present: normal inspection, symmetric chest wall rise - Respiratory Respiratory exam: Present: normal lung sounds bilaterally, other (Patient 90% on room air). Absent: accessory muscle use - Cardiovascular Cardiovascular exam: Present: normal rhythm, tachycardia - Abdominal Exam Abdominal exam: Present: soft, Non-Tender. Absent: distention, guarding, rebound, rigidity - Extremities Exam Extremities exam: Present: normal capillary refill - Back Exam Back exam: Absent: CVA tenderness (R), CVA tenderness (L) - Neurological Exam Neurological exam: Present: alert, oriented X3 - Psychiatric Psychiatric exam: Present: normal affect, normal mood - Skin Skin exam: Present: warm, dry, intact, normal color Course Vital Signs Temperature 97.4 F L 04/02/18 11:07 Pulse Rate 101 04/02/18 11:07 Respiratory Rate 22 04/02/18 11:07 Blood Pressure 113/76 04/02/18 11:07 O2 Sat by Pulse Oximetry 96 04/02/18 11:07 Temperature 97.4 F L 04/02/18 11:48 Pulse Rate 86 04/02/18 12:40 Respiratory Rate 16 04/02/18 12:54 Blood Pressure 141/96 04/02/18 12:40 O2 Sat by Pulse Oximetry 98 04/02/18 12:54 Oxygen Delivery Oxygen Delivery Nasal Cannula Medical Decision Making - [facility] Narrative Medical decision making narrative: 62-year-old female presents to the emergency department with concern for nausea and fever. Patient has recent history of hospitalization with pneumonia. Chest x-ray does reveal right middle lobe pneumonia. Patient initially mildly tachycardic with pulse of 101. We have addressed this with normal saline. Patient received 1 bolus of fluid here in the emergency department. 2 more liters of fluid were ordered. Patient will be covered for HCAP. We have given Levaquin, vancomycin, cefepime. Urinalysis reveals moderate leukocyte esterase with many bacteria. Patient had oxygen saturation of 90% on room air. Patient was administered 2 L of oxygen via nasal cannula and responded to 96%. Patient does have elevated troponin here of 0.09. No changes on the EKG. No chest pain. Lactic acid has been ordered. This has not resulted. Patient admitted to the hospitalist. Hemodynamically stable and not in acute distress at that time. Vital Signs Temperature 97.4 F L 04/02/18 11:07 Pulse Rate 101 04/02/18 11:07 Respiratory Rate 22 04/02/18 11:07 Blood Pressure 113/76 04/02/18 11:07 O2 Sat by Pulse Oximetry 96 04/02/18 11:07 Temperature 97.4 F L 04/02/18 11:48 Pulse Rate 84 04/02/18 13:32 Respiratory Rate 18 04/02/18 13:32 Blood Pressure 133/68 04/02/18 13:32 O2 Sat by Pulse Oximetry 93 04/02/18 13:32 Oxygen Delivery Oxygen Delivery Nasal Cannula - Lab Data Result diagrams: 04/02/18 11:27 04/02/18 11:27 Lab Results 04/02/18 04/02/18 04/02/18 Range/Units 11:27 11:27 12:40 WBC 20.1 H (4.3-11.1) K/mcL RBC 6.33 H (3.82-4.97) M/mcL Hgb 18.3 H (11.5-15.4) g/dL Hct 54.8 H (35.3-44.9) % MCV 86.6 (83.0-100.0) fL MCH 28.9 (28.0-33.3) pg MCHC 33.4 (31.6-35.5) g/dL RDW 14.4 (11.5-14.5) % Plt Count 250 (140-400) K/mcL MPV 11.4 (9.4-12.4) fL Immature Gran % 0.9 (0-4) % Seg Neutrophils % 89.1 % Lymphocytes % 7.4 % Monocytes % 2.1 % Eosinophils % 0.1 % Basophils % 0.4 % Neutrophils # 17.8 H (1.6-8.9) K/mcL Lymphocytes # 1.5 (0.6-4.6) K/mcL Monocytes # 0.4 (0.0-1.3) K/mcL Eosinophils # 0.0 (0.0-0.6) K/mcL Basophils # 0.1 (0.0-0.2) K/mcL Sodium 134 L (136-145) mEq/L Potassium 4.8 (3.5-5.1) mEq/L Chloride 100 (98-107) mEq/L Carbon Dioxide 20 L (23-29) mEq/L BUN 16 (8-23) mg/dL Creatinine 1.01 (0.60-1.20) mg/dL Est GFR ( Amer) > 60 (> 60) Est GFR (Non-Af Amer) 55 L (> 60) BUN/Creatinine Ratio 16 (6-26) Glucose 131 H (70-105) mg/dL Calculated Osmolality 281 (280-300) Calcium 10.8 H (8.6-10.3) mg/dL Total Bilirubin 1.2 H (0.3-1.0) mg/dL AST 35 (13-39) Units/L ALT 31 (7-52) Units/L Alkaline Phosphatase 129 H (34-104) Units/L Troponin I 0.09 H* (< 0.04) ng/mL Serum Total Protein 8.9 (6.4-8.9) g/dL Albumin 4.8 (3.5-5.7) g/dL Globulin 4.1 H (2.4-3.5) g/dL Albumin/Globulin Ratio 1.2 (1.1-2.2) Ur Specimen Adequacy See below A Urine Color Dark Yellow (Yellow) Urine Clarity Cloudy A (Clear) Urine pH 7.0 (5.0-8.0) pH Units Ur Specific [place] 1.025 (1.010-1.025) Urine Protein 100 H (Neg-Trace) mg/dL Urine Glucose (UA) Normal (Normal) mg/dL Urine Ketones Trace H (Negative) mg/dL Urine Blood Negative (Negative) Urine Nitrite Negative (Negative) Urine Bilirubin Small H (Negative) Urine Urobilinogen Normal (Normal) mg/dL Ur Leukocyte Esterase Moderate H (Negative) Urine Microscopic RBC 0-3 (0-3) per hpf Urine Microscopic WBC 5-15 H (0-3) per hpf Ur Squamous Epith Cells Many H (None-Few) per lpf Urine Bacteria Many H (None-Few) per hpf Ur Culture Indicated? NO. A (NO) - EKG Data EKG #1 EKG attestation: Yes I reviewed and interpreted this EKG. EKG results narrative: 11:47 Ventricular rate 92 bpm, CO interval 190 ms, QRS duration 86 ms, QT 334 ms, QTC 383 ms, normal axis. Sinus rhythm with a ventricular rate of [address] changes noted EKG was compared to a previous st on 09/17/2016..
[2018-04-02 12:56] LABS: Bilirubin,Urine Small (Negative); Blood,Urine Negative (Negative); Clarity,Urine Cloudy (Clear); Color,Urine Dark Yellow (Yellow); Glucose,Urine (UA) Normal (Normal); Ketones,Urine Trace mg/dL (Negative); Leukocyte Esterase,Urine Moderate (Negative); Nitrite,Urine Negative (Negative); Protein,Urine 100 mg/dL (Neg-Trace); Specific Gravity,Urine 1.025 (1.010-1.025); Urobilinogen,Urine Normal (Normal)
[2018-04-02 13:18] LABS: Bacteria,Urine Many per hpf (None-Few); Squamous Epithelial Cell,Urine Many per lpf (None-Few)
[2018-04-02 13:19] LABS: RBC,Urine 0-3 per hpf (0-3)
[2018-04-02] MEDS ORDERED: Naloxone 0.4 MG/ML INJ IVP PRN (13:56)
[2018-04-02] MEDS ORDERED: Ipratropium/Albuterol Neb 3 ML IH PRN (14:03)
--- NOTE | 2018-04-02 14:08 | Internal Med History&Physical ---
Date of Encounter: 04/02/18 Time of Encounter: 14:15 Internal Medicine - H&P: HPI Chief complaint: Shortness of breath Admitted From: Home Plans for Post Hospital Care: Home History of present illness: Ms. Naylor is a 62 year old female with a history of bronchomalacia presented to the emergency room with shortness of breath, cough, and fever associated with decreased appetite and constitutional symptoms and feeling very weak. This patient has been having cough that was productive yesterday of greenish to brownish material. He had fever temperature was 102. Patient was found to have pneumonia feels given antibiotic and breathing treatment. She denied any chest pain no nausea no vomiting no abdominal pain no changes in bowel movement. Patient has a history of bronchomalacia and COPD and she does use oxygen at night 2-1/2 L. She is following up with pulmonology. Past Med Surg Social Fam HX - Past Medical History Medical history: arthritis, COPD, fibromyalgia, GERD, thyroid disease, other Additional medical history: Hypothyroidism, tracheal stenosis Psychiatric history: anxiety, depression - Past Surgical History Surgical History: cholecystectomy, hysterectomy, knee replacement, orthopedic, other, other, vascular surgery Additional surgical history: Rotator cuff repair bilaterally, brain aneursym clip, bicept surgery on left arm, back surgery, two tracheal surgeries, hammer toe surgery on right foot, bone spur on left foot surgery, bone spur off right heel, L femur repair - Social History Smoking Status: Never smoker Smokeless Tobacco Status: No Alcohol use: none Drug use: none - Family History Mother Family Member Ethnicity: Non- Living Status: Hx Family Cardiac Disorders: Yes Hx Family Respiratory Disorders: No Hx Family Cancer: No Hx Family GI Disorders: No Hx Family Endocrine Disorder: No Hx Family Neuromuscular Disorders: Yes Hx Family Neurologic Disorders: No Hx Family HEENT Disorders: No Hx Family Autoimmune Disorders: No Father Living Status: Internal Medicine - H&P: Meds Albuterol Sulfate [Proair Hfa] 2 puff IH Q4H PRN 09/16/16 [History] Budesonide/Formoterol 160/4.5 [Symbicort 160/4.5] 2 puff IH BIDR 09/16/16 [ History] Escitalopram [Lexapro] 20 mg PO DAILY 09/16/16 [History] Imipramine HCl [Tofranil] 25 mg PO HS 09/16/16 [History] Levothyroxine [Levothyroxine Sodium] 137 mcg PO DAILY 09/16/16 [History] Meloxicam [Mobic] 15 mg PO DAILY 09/16/16 [History] Ropinirole HCl [Requip] 0.5 mg PO HS 09/16/16 [History] Desmopressin Acetate [Ddavp] 0.2 mg PO HS 01/28/18 [History] 3 Allergy/AdvReac Type Severity Reaction Status Date / Time morphine Allergy Redness of Verified 01/28/18 11:05 Skin Iodinated Contrast- Oral and AdvReac Flushing Verified 01/28/18 11:05 IV Dye All Systems PM: A 10-system review of systems was performed and is negative for pertinent findings except as documented above in the HPI. - Constitutional Vitals: Temp Pulse Resp BP Pulse Ox 97.4 F L 84 18 133/68 93 04/02/18 11:48 04/02/18 13:32 04/02/18 13:32 04/02/18 13:32 04/02/18 13:32 - Head Head exam: Present: atraumatic, normocephalic - Eye Eye exam: Present: PERRL, conjuntiva pink, sclera anicteric Pupils: Present: PERRL - Neck Neck exam general surgery: Present: supple, trachea midline. Absent: lymphadenopathy - Respiratory Additional comments: fine crackles bibasilarly with diminished breath sounds - Cardiovascular Cardiovascular exam: Present: RRR, +S1, +S2. Absent: diastolic murmur, gallop, rubs, systolic murmur - GI/Abdominal GI/Abdominal exam: Present: normal bowel sounds, soft, no peritoneal signs. Absent: distended, tenderness - Extremities Exam Extremities exam: Present: warm, radial pulses palpable and symmetrical. Absent : calf tenderness, cyanotic, pedal edema - Neurological Exam Neurological exam: Present: CN II-XII intact, oriented X3, no focal deficits. Absent: pronater drift, facial droop, speech deficit - Skin Skin exam: Present: dry, intact Internal Med - H&P Results - Labs CBC & Chem 7: 04/02/18 11:27 04/02/18 11:27 - Assessment and plan (1) Community acquired pneumonia Current Visit: Yes Status: Acute Assessment and plan: Start antibiotics with azithromycin and Rocephin Culture to be done before antibiotics administration. Blood cultures, sputum cultures, Legionella and pneumococcal urine antigen Check pro-calcitonin level Check lactic acid Breathing treatment every 4 hours and when necessary Will get pulmonology evaluation for history of bronchomalacia Antiemetics when necessary IV hydration Follow clinically Qualifiers: Qualified Code(s): J18.9 - Pneumonia, unspecified organism (2) Dehydration Current Visit: Yes Status: Acute Assessment and plan: With hemoconcentration Continue IV hydration with normal saline (3) Leukocytosis Current Visit: Yes Status: Acute Assessment and plan: Continue plan as above Qualifiers: Qualified Code(s): D72.829 - Elevated white blood cell count, unspecified (4) Troponin I above reference range Current Visit: Yes Status: Acute Assessment and plan: Patient denied any chest pain. Had no cardiac problems We will get serial troponin every 6 hours for 3 sets to make sure it is trending down With the patient on baby aspirin for now Get an echocardiogram for further evaluation of the heart structure and function Check an EKG (5) On esomeprazole prophylaxis Current Visit: Yes Status: Acute (6) COPD (chronic obstructive pulmonary disease) Current Visit: No Status: Chronic Assessment and plan: Not in exacerbation Continue current management Qualifiers: COPD type: unspecified COPD Qualified Code(s): J44.9 - Chronic obstructive pulmonary disease, unspecified (7) DVT prophylaxis Current Visit: Yes Status: Acute Assessment and plan: With Lovenox subcutaneous - Time Spent With Patient Total time spent is greater than 50% in coordination of care (as documented) at patient's floor/unit and/or counseling patient:
[2018-04-02] MEDS ORDERED: Isovue-370 500 ML INFUS..BTL IV ONE (14:19)
--- NOTE | 2018-04-02 14:43 | Pulmonology Consult Note ---
Date of Encounter: 04/02/18 Time of Encounter: 14:39 Assessment and Plan (1) Pneumonia Current Visit: Yes Status: Acute She presents for acute pneumonia in the context of prior pneumonia approximately 3 months ago. Agree with antibiotics to treat community organisms including atypical infection MRSA nasal swab if negative no need for MRSA coverage Send sputum and blood cultures if not already obtained Respiratory PCR panel Check urine Legionella and strep pneumonia antigen Repeat CT scan (non contrasted study) Also reviewed her prior CT scan recommend repeat CT scan at this time. She had evidence of left upper lobe bronchus narrowing which may have been from extrinsic compression possibly underlying mass or lymph node. The plan at that time was for bronchoscopy in the outpatient setting however we will proceed at this time given recurrent pneumonia and some CT abnormalities. A bronchoscopy is recommended. The procedure , risks, benefits, complications, and expected outcomes have been reviewed. Benefits of diagnosis, as well as risks to include bleeding, infection, pneumothorax which may require surgical intervention, and in a small population. The patient is aware that sometimes test is nondiagnostic. Discussed with patient and agrees to proceed. Please keep nothing by mouth at midnight for planned procedure tomorrow with anesthesia Qualifiers: Lung location: unspecified part of lung Qualified Code(s): J18.9 - Pneumonia, unspecified organism (2) COPD exacerbation Current Visit: Yes Status: Acute Would dose IV Solu-Medrol 40 mg twice a day and likely transition to by mouth formulation of steroids in the next 24-48 hours scheduled bronchodilators every 6 hours (duonebs) with every hour albuterol (3) Elevated troponin Current Visit: Yes Status: Acute Management Per primary medicine service. I suspect this represents demand ischemia given dehydration and sepsis. Echocardiogram pending (4) Hemoptysis Current Visit: Yes Status: Acute This is minor hemoptysis related to infection/airway inflammation will need to monitor closely if more than 250 mL of bright red blood at any one episode Or within 12 hours when he transfer to higher level of acuity such as ICU (5) Tracheobronchomalacia Current Visit: Yes Status: Acute She will benefit from airway clearance I have discussed the case with respiratory therapy and we will initiate airway clearance device thrice daily. Also benefit from bronchodilators. I would stop any inhaled corticosteroid that has been scheduled and I will stop that as well in the outpatient setting given recurrent pneumonia and history of tracheobronchomalacia. She would benefit from positive airway pressure to help with this condition although she has not tolerated in the past (6) LORE (obstructive sleep apnea) Current Visit: Yes Status: Acute She has had difficulty wearing positive airway pressure in the past and has refused repeat sleep study and attempts in the outpatient setting to adjust mask desensitization etc. Would recommend continuation of nasal cannula O2 at night at this time Caution against the use of IV narcotics or benzodiazepines History of Present Illness Consult date: 04/02/18 Requesting physician: Shukri Pelaez Reason for consult: pneumonia Chief complaint: Difficulty in Breathing History of present illness: This is a very pleasant 62-year-old woman well known to me from outpatient clinic where I am her primary loss prevention agent. 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 She has been noted to have several episodes of COPD exacerbation that has started in the middle part of this year and had been hospitalized at least one other occasion for pneumonia. She presented to the today to the emergency room with symptoms notable of fever cough productive of brownish phlegm and some occasionally sputum that has been streaked with blood although she denies coughing up teena blood In the emergency department she was noted to have tachycardia but had excellent saturation on room air. She had leukocytosis to 20,000 and noted hemoglobin that was greater than 18 from baseline of around 11 felt to be secondary to hemoconcentration/volume depletion. A chest x-ray was performed which was notable for right middle lobe and lingular infiltrate/pneumonia. Pulmonary was consulted for further evaluation of the patient given her chronic respiratory symptoms and concern for hemoptysis Past Med Surg Social Fam HX - Past Medical History Medical history: arthritis, COPD, fibromyalgia, GERD, thyroid disease, other Additional medical history: Hypothyroidism, tracheal stenosis Psychiatric history: anxiety, depression - Past Surgical History Surgical History: cholecystectomy, hysterectomy, knee replacement, orthopedic, other, other, vascular surgery Additional surgical history: Rotator cuff repair bilaterally, brain aneursym clip, bicept surgery on left arm, back surgery, two tracheal surgeries, hammer toe surgery on right foot, bone spur on left foot surgery, bone spur off right heel, L femur repair - Social History Smoking Status: Never smoker Smokeless Tobacco Status: No Alcohol use: none Drug use: none - Family History Mother Family Member Ethnicity: Non- Living Status: Hx Family Cardiac Disorders: Yes Hx Family Respiratory Disorders: No Hx Family Cancer: No Hx Family GI Disorders: No Hx Family Endocrine Disorder: No Hx Family Neuromuscular Disorders: Yes Hx Family Neurologic Disorders: No Hx Family HEENT Disorders: No Hx Family Autoimmune Disorders: No Father Living Status: Medications and Allergies Albuterol Sulfate [Proair Hfa] 2 puff IH Q4H PRN 09/16/16 [History] Budesonide/Formoterol 160/4.5 [Symbicort 160/4.5] 2 puff IH BIDR 09/16/16 [ History] Escitalopram [Lexapro] 20 mg PO DAILY 09/16/16 [History] Imipramine HCl [Tofranil] 25 mg PO HS 09/16/16 [History] Levothyroxine [Levothyroxine Sodium] 137 mcg PO DAILY 09/16/16 [History] Meloxicam [Mobic] 15 mg PO DAILY 09/16/16 [History] Ropinirole HCl [Requip] 0.5 mg PO HS 09/16/16 [History] Desmopressin Acetate [Ddavp] 0.2 mg PO HS 01/28/18 [History] 3 Allergy/AdvReac Type Severity Reaction Status Date / Time morphine Allergy Redness of Verified 01/28/18 11:05 Skin Iodinated Contrast- Oral and AdvReac Flushing Verified 01/28/18 11:05 IV Dye All Systems: The remainder of the systems were reviewed and are negative Physical Examination General appearance: no acute distress Eyes: nonicteric ENT: oropharynx moist, other (oropharynx clear ) Mallampati (class): 4 Neck: no lymphadenopathy Effort: normal Auscultation: left: wheezes, right: rhonchi Cardiovascular: regular rate and rhythm Gastrointestinal: normoactive bowel sounds, soft, non-tender Integumentary: normal Extremities: no cyanosis, no edema, no clubbing, pink and warm Musculoskeletal: no deformities normal mental status, non-focal exam, pupils equal and round, motor strength normal and symmetric mood appropriate Results - Laboratory Findings CBC and BMP: 04/02/18 11:27 04/02/18 11:27 Abnormal lab findings: Abnormal lab results WBC 20.1 K/mcL (4.3-11.1) H 04/02/18 11:27 RBC 6.33 M/mcL (3.82-4.97) H 04/02/18 11:27 Hgb 18.3 g/dL (11.5-15.4) H 04/02/18 11:27 Hct 54.8 % (35.3-44.9) H 04/02/18 11:27 Neutrophils # 17.8 K/mcL (1.6-8.9) H 04/02/18 11:27 Sodium 134 mEq/L (136-145) L 04/02/18 11:27 Carbon Dioxide 20 mEq/L (23-29) L 04/02/18 11:27 Est GFR (Non-Af Amer) 55 (> 60) L 04/02/18 11:27 Glucose 131 mg/dL (70-105) H 04/02/18 11:27 Calcium 10.8 mg/dL (8.6-10.3) H 04/02/18 11:27 Total Bilirubin 1.2 mg/dL (0.3-1.0) H 04/02/18 11:27 Alkaline Phosphatase 129 Units/L (34-104) H 04/02/18 11:27 Troponin I 0.09 ng/mL (< 0.04) H* 04/02/18 11:27 Globulin 4.1 g/dL (2.4-3.5) H 04/02/18 11:27 Ur Specimen Adequacy See below A 04/02/18 12:40 Urine Clarity Cloudy (Clear) A 04/02/18 12:40 Urine Protein 100 mg/dL (Neg-Trace) H 04/02/18 12:40 Urine Ketones Trace mg/dL (Negative) H 04/02/18 12:40 Urine Bilirubin Small (Negative) H 04/02/18 12:40 Ur Leukocyte Esterase Moderate (Negative) H 04/02/18 12:40 Urine Microscopic WBC 5-15 per hpf (0-3) H 04/02/18 12:40 Ur Squamous Epith Cells Many per lpf (None-Few) H 04/02/18 12:40 Urine Bacteria Many per hpf (None-Few) H 04/02/18 12:40 Ur Culture Indicated? NO. (NO) A 04/02/18 12:40 - Diagnostic Findings Chest x-ray: report reviewed, image reviewed Consult Discharge Plan - Plan Referrals: Landon Champion MD [Primary Care Provider] -
[2018-04-02] MEDS ORDERED: Ipratropium/Albuterol Neb 3 ML IH SCH (16:00)
[2018-04-02] MEDS: 0.9 % Sodium Chloride 1,000 ML IVC SCH (16:13)
[2018-04-02] MEDS: Azithromycin 500 MG in D5% in Water 250 ML IVPB SCH (16:13)
--- NOTE | 2018-04-02 17:45 | Electrocardiograph Report ---
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
[2018-04-02] MEDS ORDERED: Albuterol 2.5 MG/3 ML NEBULIZER IH PRN (17:50)
[2018-04-02] MEDS ORDERED: Ondansetron ODT 4 MG TAB.RAPDIS SL PRN (18:25)
[2018-04-02] MEDS: rOPINIRole 1 MG TABLET PO SCH (20:30)
[2018-04-02] MEDS: cefTRIAXone 1,000 MG in Water for inj. (sterile) 20 ML 10 ML IVP SCH (20:31)
[2018-04-02] MEDS: Budesonide/Formoterol 160/4.5 MDI IH SCH (21:36)
[2018-04-02] MEDS: Ipratropium/Albuterol Neb 3 ML IH SCH (21:36)
[2018-04-02] MEDS: Acetaminophen 325 MG TABLET PO PRN (21:59)
--- NOTE | 2018-04-02 22:02 | Anesthesia Evaluation PreOp ---
Date of Encounter: 04/02/18 Time of Encounter: 22:00 - Past History Planned Operation: Airway inspection/Bronchoscopy Cardiac History: Denies any Significant Hx Pulmonary History: COPD (+ Home O2 use 2.5-3L/min), Other (+ HX BRONCHOMALACIA, admitted 04/02/2016 with probable pneumonia, Tracheal stenosis) CHIROPRACTOR ASSISTANT History: Other (Fibromyalgia, Anxiety/Depression, RLS) Other Medical History: Renal (CRI/GFR = 55), Thyroid (Hypothyroidism), GERD Anesthesia History: No Prior Anesthetic Complications (#4 iGel LMA placed without difficulty for 2016 L-TKR), Past Anesthesia (Adelaida, Hyster, L-TKR 2016 , Vascular surgery, B-Rotator cuff repairs, Brain aneurysm clipping, L-Biceps surgery, Back surgery, Tracheal surgery x 2, R-foot Hammer toe surgery, L-foot Bone spur, L-femur repair, bladder stim) Alcohol Use: none Drug use: none Medications and Allergies Albuterol Sulfate [Proair Hfa] 2 puff IH Q4H PRN 09/16/16 [History] Budesonide/Formoterol 160/4.5 [Symbicort 160/4.5] 2 puff IH BIDR 09/16/16 [ History] Escitalopram [Lexapro] 20 mg PO DAILY 09/16/16 [History] Imipramine HCl [Tofranil] 25 mg PO HS 09/16/16 [History] Levothyroxine [Levothyroxine Sodium] 137 mcg PO DAILY 09/16/16 [History] Meloxicam [Mobic] 15 mg PO DAILY 09/16/16 [History] Ropinirole HCl [Requip] 0.5 mg PO HS 09/16/16 [History] Desmopressin Acetate [Ddavp] 0.2 mg PO HS 01/28/18 [History] 3 Allergy/AdvReac Type Severity Reaction Status Date / Time morphine Allergy Redness of Verified 01/28/18 11:05 Skin Iodinated Contrast- Oral and AdvReac Flushing Verified 01/28/18 11:05 IV Dye - Meds/Allergy Pre-op Review Medications Reviewed: Yes Allergies Reviewed: Yes Beta Blockers on Current Med List: No Anesthesia Results - Labs 04/02/18 11:27 04/02/18 11:27 Laboratory Results WBC 20.1 K/mcL (4.3-11.1) H 04/02/18 11:27 RBC 6.33 M/mcL (3.82-4.97) H 04/02/18 11:27 Hgb 18.3 g/dL (11.5-15.4) H 04/02/18 11:27 Hct 54.8 % (35.3-44.9) H 04/02/18 11:27 MCV 86.6 fL (83.0-100.0) 04/02/18 11:27 MCH 28.9 pg (28.0-33.3) 04/02/18 11:27 MCHC 33.4 g/dL (31.6-35.5) 04/02/18 11:27 RDW 14.4 % (11.5-14.5) 04/02/18 11:27 Plt Count 250 K/mcL (140-400) 04/02/18 11:27 MPV 11.4 fL (9.4-12.4) 04/02/18 11:27 Immature Gran % 0.9 % (0-4) 04/02/18 11:27 Seg Neutrophils % 89.1 % 04/02/18 11:27 Lymphocytes % 7.4 % 04/02/18 11:27 Monocytes % 2.1 % 04/02/18 11:27 Eosinophils % 0.1 % 04/02/18 11:27 Basophils % 0.4 % 04/02/18 11:27 Neutrophils # 17.8 K/mcL (1.6-8.9) H 04/02/18 11:27 Lymphocytes # 1.5 K/mcL (0.6-4.6) 04/02/18 11:27 Monocytes # 0.4 K/mcL (0.0-1.3) 04/02/18 11:27 Eosinophils # 0.0 K/mcL (0.0-0.6) 04/02/18 11:27 Basophils # 0.1 K/mcL (0.0-0.2) 04/02/18 11:27 Sodium 134 mEq/L (136-145) L 04/02/18 11:27 Potassium 4.8 mEq/L (3.5-5.1) 04/02/18 11:27 Chloride 100 mEq/L (98-107) 04/02/18 11:27 Carbon Dioxide 20 mEq/L (23-29) L 04/02/18 11:27 BUN 16 mg/dL (8-23) 04/02/18 11:27 Creatinine 1.01 mg/dL (0.60-1.20) 04/02/18 11:27 Est GFR ( Amer) > 60 (> 60) 04/02/18 11:27 Est GFR (Non-Af Amer) 55 (> 60) L 04/02/18 11:27 BUN/Creatinine Ratio 16 (6-26) 04/02/18 11:27 Glucose 131 mg/dL (70-105) H 04/02/18 11:27 Calculated Osmolality 281 (280-300) 04/02/18 11:27 Lactic Acid 2.0 mmol/L (0.5-2.2) 04/02/18 14:05 Calcium 10.8 mg/dL (8.6-10.3) H 04/02/18 11:27 Total Bilirubin 1.2 mg/dL (0.3-1.0) H 04/02/18 11:27 AST 35 Units/L (13-39) 04/02/18 11:27 ALT 31 Units/L (7-52) 04/02/18 11:27 Alkaline Phosphatase 129 Units/L (34-104) H 04/02/18 11:27 Troponin I 0.03 ng/mL (< 0.04) 04/02/18 17:37 Serum Total Protein 8.9 g/dL (6.4-8.9) 04/02/18 11:27 Albumin 4.8 g/dL (3.5-5.7) 04/02/18 11:27 Globulin 4.1 g/dL (2.4-3.5) H 04/02/18 11:27 Albumin/Globulin Ratio 1.2 (1.1-2.2) 04/02/18 11:27 Ur Specimen Adequacy See below A 04/02/18 12:40 Urine Color Dark Yellow (Yellow) 04/02/18 12:40 Urine Clarity Cloudy (Clear) A 04/02/18 12:40 Urine pH 7.0 pH Units (5.0-8.0) 04/02/18 12:40 Ur Specific [place] 1.025 (1.010-1.025) 04/02/18 12:40 Urine Protein 100 mg/dL (Neg-Trace) H 04/02/18 12:40 Urine Glucose (UA) Normal mg/dL (Normal) 04/02/18 12:40 Urine Ketones Trace mg/dL (Negative) H 04/02/18 12:40 Urine Blood Negative (Negative) 04/02/18 12:40 Urine Nitrite Negative (Negative) 04/02/18 12:40 Urine Bilirubin Small (Negative) H 04/02/18 12:40 Urine Urobilinogen Normal mg/dL (Normal) 04/02/18 12:40 Ur Leukocyte Esterase Moderate (Negative) H 04/02/18 12:40 Urine Microscopic RBC 0-3 per hpf (0-3) 04/02/18 12:40 Urine Microscopic WBC 5-15 per hpf (0-3) H 04/02/18 12:40 Ur Squamous Epith Cells Many per lpf (None-Few) H 04/02/18 12:40 Urine Bacteria Many per hpf (None-Few) H 04/02/18 12:40 Ur Culture Indicated? NO. (NO) A 04/02/18 12:40 Nasal Screen MRSA (PCR) Negative (Negative) 04/02/18 16:17 Impressions Chest X-Ray 04/02/18 11:42 IMPRESSION: Right middle lobe and lingular infiltrate/pneumonia. D/ / 04/02/2018 13:15:13 Elvis Florian MD / [email or web address] Interpreting Provider: Elvis Florian MD Anesthesia Exam Vital Signs Temp Pulse Resp BP Pulse Ox 04/02/18 21:36 18 95 04/02/18 21:28 98.1 F 82 16 118/50 95 04/02/18 16:15 16 95 04/02/18 13:56 98.1 F 86 16 113/74 96 04/02/18 13:32 84 18 133/68 93 04/02/18 12:54 16 98 04/02/18 12:40 86 18 141/96 98 04/02/18 11:48 97.4 F L 101 22 113/76 96 04/02/18 11:07 97.4 F L 101 22 113/76 96 Intake and Output 04/02/18 04/02/18 04/02/18 07:59 15:59 23:59 Intake Total 1100 / 1100 Output Total 0 / 0 0 / 0 Balance 1100 / 1100 0 / 0 Intake: IV Fluids 1100 / 1100 0.9 % Sodium Chloride 1,000 ML 1000 / 1000 @ 999 mls/hr IVC .Q1H1M ONE Rx# :[id number] Maxipime 2,000 MG In 0.9 % 100 / 100 Sodium Chloride (Mini-Bag +) 100 ML @ 200 mls/hr IVPB Q8HR ONE Rx#:[id number] Oral 0 / 0 Output: Urine 0 / 0 0 / 0 Other: Weight 110.7 kg Patient Weight 04/02/18 23:59 Weight 110.7 kg Height: 5'3" Weight: 244# BMI = 43 - HEENT Pupil (Motor): Pupils equal, EOMI Mallampati: III Teeth: Normal Oral Opening: Greater than 3 - CHIROPRACTOR ASSISTANT LOC: Oriented CHIROPRACTOR ASSISTANT Motor: Normal RUE, Normal LUE, Normal RLE, Normal LLE, Normal Face CHIROPRACTOR ASSISTANT Sensory: Normal: RUE, LUE, RLE, LLE, Face - Cardiac Rhythm: Regular Murmur: None - Pulmonary Breath Sounds: bilateral Clear Respiratory Effort: Symmetrical Anesthesia Assess/Plan ASA Score: 4 (MO/BMI = 43, COPD, CRI, Anxiety/Depression, Fibromyalgia) Modified [place] Scale for Level of Consciousness: Cooperative, oriented, and tranquil Anesthetic Plan: General Autologous Blood: Yes Monitoring Plan: Standard Monitors Recovery Plan: PACU
[2018-04-03] MEDS: 0.9 % Sodium Chloride 1,000 ML IVC SCH (03:32)
[2018-04-03] MEDS: Ipratropium/Albuterol Neb 3 ML IH SCH ×4 (03:50→21:23)
[2018-04-03] MEDS: Acetaminophen 325 MG TABLET PO PRN ×2 (05:23→12:25)
[2018-04-03] MEDS: *HR* Enoxaparin 40 MG/0.4 ML SYRINGE SQ SCH (05:23)
[2018-04-03 06:19] LABS: Basophils % 0.2 %; Eosinophils # 0.1 K/mcL (0.0-0.6); Eosinophils % 0.8 %; Hematocrit 41.7 % (35.3-44.9); Immature Granulocytes % 0.4 % (0-4); Lymphocytes # 0.8 K/mcL (0.6-4.6); Lymphocytes % 8.3 %; Mean Corpuscular HGB Conc 32.1 g/dL (31.6-35.5); Mean Corpuscular Hemoglobin 28.1 pg (28.0-33.3); Mean Corpuscular Volume 87.4 fL (83.0-100.0); Mean Platelet Volume 10.8 fL (9.4-12.4); Monocytes # 0.3 K/mcL (0.0-1.3); Monocytes % 3.1 %; Platelet Count 138 K/mcL (140-400); Red Blood Count 4.77 M/mcL (3.82-4.97); Segmented Neutrophils % 87.2 %
[2018-04-03 06:20] LABS: Hemoglobin 13.4 g/dL (11.5-15.4); Neutrophils # 8.4 K/mcL (1.6-8.9)
[2018-04-03 06:35] LABS: BUN/Creatinine Ratio 29 (6-26); Blood Urea Nitrogen 18 mg/dL (8-23); Calcium 8.8 mg/dL (8.6-10.3); Carbon Dioxide 21 mEq/L (23-29); Chloride 105 mEq/L (98-107); Chol/HDL Ratio 2.7 (0-4.9); Cholesterol 139 mg/dL (< 200); Glucose 117 mg/dL (70-105); HDL Cholesterol 52 mg/dL (40-59); LDL Cholesterol,Calculated 71 mg/dL (0-99); Magnesium 1.7 mg/dL (1.6-2.6); Osmolality,Calculated 279 (280-300); Phosphorous 2.7 mg/dL (2.7-4.5); Potassium 4.1 mEq/L (3.5-5.1); Sodium 133 mEq/L (136-145); Triglycerides 81 mg/dL (< 150); eGFR For African Americans > 60 (> 60); eGFR For Non-African Americans > 60 (> 60)
[2018-04-03 07:00] LABS: Immature Platelets 7.2 % (1.1-6.1)
[2018-04-03] MEDS ORDERED: Lidocaine -MPF 4% 5 ML AMPUL ONE (08:51)
[2018-04-03] MEDS ORDERED: *HR* Midazolam HCl 2 MG/2 ML VIAL ONE (08:52)
[2018-04-03] MEDS ORDERED: Dexamethasone 4 MG/ML VIAL ONE (08:52)
[2018-04-03] MEDS ORDERED: *HR* FentaNYL (PF) 100 MCG/2 ML VIAL ONE (08:52)
[2018-04-03] MEDS ORDERED: Ondansetron 4 MG/2 ML VIAL ONE (08:52)
[2018-04-03] MEDS ORDERED: *HR* Propofol 200 MG/20 ML VIAL IVP ONE (08:52)
[2018-04-03] MEDS ORDERED: Lidocaine -MPF 2% 2 ML VIAL ONE (08:52)
[2018-04-03] MEDS ORDERED: Naloxone 0.4 MG/ML INJ IVP PRN (10:40)
[2018-04-03] MEDS ORDERED: *HR* Promethazine 25 MG/ML VIAL IVP PRN (10:40)
[2018-04-03] MEDS ORDERED: *HR* Meperidine 25 MG/ML SYRINGE IVP PRN (10:40)
[2018-04-03] MEDS ORDERED: Ondansetron 4 MG/2 ML VIAL IVP ONE (10:40)
[2018-04-03] MEDS ORDERED: Albuterol 2.5 MG/3 ML NEBULIZER IH ONE (10:40)
[2018-04-03] MEDS: Budesonide/Formoterol 160/4.5 MDI IH SCH (10:43)
--- NOTE | 2018-04-03 12:20 | Anesthesia Evaluation Post Op ---
Date of Encounter: 04/03/18 Time of Encounter: 12:20 - Vital Signs Vital Signs: Vital Signs/O2 Sat/Glucose, Most Current Temp Pulse Resp BP Pulse Ox 04/03/18 12:05 98 F 70 16 153/99 97 04/03/18 11:49 98.7 F 82 18 149/87 96 04/03/18 11:39 98.7 F 86 18 148/81 94 04/03/18 11:29 99.9 F H 81 18 157/82 95 04/03/18 11:19 97.2 F L 82 18 166/85 95 04/03/18 10:30 97.7 F 86 18 174/84 94 - Lungs Lungs: Clear Ascult./Percussion - Airway Airway: Non-obstructed - Cardiovascular Regular Rate - Mental Status Mental Status: Alert & Oriented, Answers Appropriately - Pain Pain Scale: 0 - Nausea Vomiting Nausea Vomiting: Not Present - Hydration Hydration: Ice chips - Discharge PostOp Status: Transfer Patient to floor
[2018-04-03] MEDS: Aspirin 81 MG TAB.CHEW PO SCH (12:25)
[2018-04-03] MEDS ORDERED: Ibuprofen 600 MG TABLET PO ONE (12:56)
--- NOTE | 2018-04-03 13:17 | Pulmonology Progress Note ---
Date of Encounter: 04/03/18 Time of Encounter: 13:17 Assessment and Plan (1) Bronchial stenosis Current Visit: Yes Status: Acute Bronchoscopy was performed today which was noted notable for significant bilateral bronchial stenosis primarily noted in the left upper lobe where there was near complete obstruction of the left upper lobe takeoff off the left mainstem bronchus. There was some narrowing in the right bronchus intermedius and right lower lobe however this was much less significant than which was appreciated on the left. Of note on the right there was markedly inflammatory changes with evidence of fresh blood which was likely a manifestation of the underlying inflammatory process. This similar acute and chronic inflammatory changes were noted on the left but to a lesser degree. 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 She also had dilation of her trachea in the past for narrowing with a diagnosis of mild tracheomalacia. I have reviewed all of her outside hospital records as I had in clinic approximately 2 years ago. I do not see anywhere in the information I have thus far that any evidence of bronchial stenosis had been noted at that time which would have been 2016. Thus to the best information I have available at present the abnormal findings on today's bronchoscopy represent a progressive development of bronchial stenosis of unclear etiology. Acutely the case has been complicated by recurrent infectious process leading to acute and chronic inflammation. She does have underlying COPD which is also been exacerbated as outlined previously Recs: I would continue azithromycin for now white count has trended down there is no clear evidence of isolated organism and I think we can wait on final antimicrobial choice based upon results from bronchoscopy over the next 24 hours Continue steroids and I recommend prednisone 40 mg and she will need a long taper I suspect decrease in increments of 10 mg weekly Continue schedule bronchodilators Given recurrent infections I would advise against further use of inhaled corticosteroid in favor of a combination long-acting beta agonist/long-acting muscarinic antagonist as opposed to inhaled corticosteroid/long-acting beta agonist Patient will need repeat bronchoscopic procedure with intervention the timing and location of this is to be determined I suspect she may need transfer to tertiary referral center for dedicated interventional pulmonary/CT surgery evaluation. Plan as outlined above was discussed at length with the patient. I will check on her again tomorrow I suspect she should be close to being discharged from the hospital next 24 hours Call with any questions (2) Pneumonia Current Visit: Yes Status: Acute Qualifiers: Laterality: bilateral Lung location: unspecified part of lung Qualified Code(s): J18.9 - Pneumonia, unspecified organism (3) COPD exacerbation Current Visit: Yes Status: Acute (4) Hemoptysis Current Visit: Yes Status: Acute (5) Tracheobronchomalacia Current Visit: Yes Status: Acute (6) LORE (obstructive sleep apnea) Current Visit: Yes Status: Acute Subjective Principal diagnosis: Pneumonia Interval history: I visited Letty after bronchoscopy. She did very well through the procedure without untoward effects. She says that her breathing is about the same today if not slightly better she has been afebrile since she has been in the hospital. Objective PUL Vital signs: Last Vital Signs Temp 98 F 04/03/18 12:05 Pulse 70 04/03/18 12:05 Resp 16 04/03/18 12:05 BP 153/99 04/03/18 12:05 Pulse Ox 97 04/03/18 12:05 General appearance: no acute distress Eyes: nonicteric Auscultation: bilateral: rhonchi Cardiovascular: regular rate and rhythm Gastrointestinal: normoactive bowel sounds Integumentary: normal Extremities: no cyanosis, no edema, no clubbing normal mental status mood appropriate Results - Laboratory Findings CBC and BMP: 04/03/18 06:02 04/03/18 06:02 Abnormal lab findings: Abnormal lab results Plt Count 138 K/mcL (140-400) L 04/03/18 06:02 Immature Plt Fraction 7.2 % (1.1-6.1) H 04/03/18 06:02 Sodium 133 mEq/L (136-145) L 04/03/18 06:02 Carbon Dioxide 21 mEq/L (23-29) L 04/03/18 06:02 BUN/Creatinine Ratio 29 (6-26) H 04/03/18 06:02 Glucose 117 mg/dL (70-105) H 04/03/18 06:02 POC Glucose 100 mg/dL (70-99) H 04/03/18 07:00 Calculated Osmolality 279 (280-300) L 04/03/18 06:02 Total Bilirubin 1.2 mg/dL (0.3-1.0) H 04/02/18 11:27 Alkaline Phosphatase 129 Units/L (34-104) H 04/02/18 11:27 Globulin 4.1 g/dL (2.4-3.5) H 04/02/18 11:27 Ur Specimen Adequacy See below A 04/02/18 12:40 Urine Clarity Cloudy (Clear) A 04/02/18 12:40 Urine Protein 100 mg/dL (Neg-Trace) H 04/02/18 12:40 Urine Ketones Trace mg/dL (Negative) H 04/02/18 12:40 Urine Bilirubin Small (Negative) H 04/02/18 12:40 Ur Leukocyte Esterase Moderate (Negative) H 04/02/18 12:40 Urine Microscopic WBC 5-15 per hpf (0-3) H 04/02/18 12:40 Ur Squamous Epith Cells Many per lpf (None-Few) H 04/02/18 12:40 Urine Bacteria Many per hpf (None-Few) H 04/02/18 12:40 Ur Culture Indicated? NO. (NO) A 04/02/18 12:40 - Microbiology Findings Microbiology Findings: Microbiology, Last 48 Hours 04/02/18 14:05 Blood Culture - Preliminary Peripheral Venipuncture Culture is incubating and being continuously monitored for growth. Final report to follow. 04/02/18 14:05 Blood Culture - Preliminary Peripheral Venipuncture Culture is incubating and being continuously monitored for growth. Final report to follow. - Clinical Findings Intake & Output: Intake & Output 04/02/18 04/03/18 04/03/18 23:59 07:59 15:59 Intake Total 1000 / 1000 0 / 0 Output Total 0 / 0 200 / 200 300 / 300 Balance 0 / 0 800 / 800 -300 / -300 Weight 109 kg Consult Discharge Plan - Plan Referrals: Landon Champion MD [Primary Care Provider] -
[2018-04-03] MEDS: MethylPREDNISolone 40 MG/ML VIAL IVP SCH ×2 (14:09→20:18)
[2018-04-03] MEDS: Azithromycin 500 MG in D5% in Water 250 ML IVPB SCH (14:10)
[2018-04-03] MEDS: 0.9 % Sodium Chloride 500 ML IVC SCH (16:58)
--- NOTE | 2018-04-03 17:51 | Internal Med Progress Note ---
Date of Encounter: 04/03/18 Time of Encounter: 11:00 - Assessment and plan (1) Bronchial stenosis Current Visit: Yes Status: Acute Assessment and plan: Bronchoscopy was performed today which was noted notable for significant bilateral bronchial stenosis primarily noted in the left upper lobe where there was near complete obstruction of the left upper lobe takeoff off the left mainstem bronchus. Pulmonology Recommendations for patient to continue azithromycin in addition to oral prednisone scheduled bronchodilators (2) COPD exacerbation Current Visit: Yes Status: Acute Assessment and plan: Will continue dual nebs with oral prednisone (3) Community acquired pneumonia Current Visit: Yes Status: Acute Assessment and plan: Continue azithromycin as above Qualifiers: Lung location: unspecified part of lung Qualified Code(s): J18.9 - Pneumonia, unspecified organism (4) Hemoptysis Current Visit: Yes Status: Acute Assessment and plan: Patient with bronchoscopy which was done earlier today; cultures pending (5) Hypothyroidism Current Visit: No Status: Acute Assessment and plan: T home dose of levothyroxine Qualifiers: Hypothyroidism type: unspecified Qualified Code(s): E03.9 - Hypothyroidism , unspecified (6) DVT prophylaxis Current Visit: Yes Status: Acute Assessment and plan: Continue subcutaneous Lovenox - Time Spent With Patient Total time spent is greater than 50% in coordination of care (as documented) at patient's floor/unit and/or counseling patient: - Subjective Interval history: Patient scheduled for bronchoscopy which was done this morning - Constitutional Vitals: Temp Pulse Resp BP Pulse Ox 98.3 F 83 16 154/80 98 04/03/18 16:59 04/03/18 16:59 04/03/18 16:59 04/03/18 16:59 04/03/18 16:59 General appearance: Present: no acute distress - Respiratory Respiratory exam: Present: CTAB. Absent: accessory muscle use, rales, rhonchi, wheezes - Cardiovascular Cardiovascular exam: Present: RRR, +S1, +S2. Absent: diastolic murmur, gallop, rubs, systolic murmur Internal Medicine: Result - Labs CBC & Chem 7: 04/03/18 06:02 04/03/18 06:02 Labs: Short CBC 04/03/18 Range/Units 06:02 WBC 9.6 D (4.3-11.1) K/mcL Hgb 13.4 D (11.5-15.4) g/dL Hct 41.7 (35.3-44.9) % Plt Count 138 L (140-400) K/mcL Neutrophils # 8.4 (1.6-8.9) K/mcL BMP 04/03/18 06:02 Sodium 133 L Potassium 4.1 Chloride 105 Carbon Dioxide 21 L BUN 18 Creatinine 0.63 Glucose 117 H Calcium 8.8 Cardiac Enzymes 04/02/18 04/03/18 04/03/18 Range/Units 17:37 00:18 06:02 Troponin I 0.03 < 0.03 < 0.03 (< 0.04) ng/mL - Impressions Impressions Echocardiogram 04/02/18 14:16 Impressions: LVEF 60-65%. Mild left ventricular diastolic dysfunction. Normal right ventricular structure and function. No significant valvular dysfunction. No pulmonary hypertension. Left Ventricular Wall Motion: Rest Echo Findings All wall segments showed normal motion. Findings: Study Quality * Technically adequate exam. ECG Findings * Normal sinus rhythm. Left Ventricle * LVEF 60-65%. * Mild left ventricular diastolic dysfunction. * Normal LV chamber size, wall thickness and function. Right Ventricle * Normal right ventricular structure and function. Left Atrium * Normal left atrial size. Right Atrium * Normal right atrial size. Aortic Valve * Trace aortic regurgitation. * Trileaflet aortic valve. * No aortic stenosis. Mitral Valve * Normal mitral valve structure. * No mitral stenosis. * Trace mitral regurgitation. Tricuspid Valve * No tricuspid regurgitation. * Normal tricuspid valve structure. Pulmonic Valve * Pulmonic valve is not well visualized. * No pulmonic stenosis. * Trace pulmonic regurgitation. Pulmonary Artery * Pulmonary artery not well visualized. Aorta * Normally sized aortic root. Pericardium * There is no pericardial effusion present. Interatrial Septum * Interatrial septum not well evaluated. IVC * The IVC is not well evaluated. Chest CT 04/03/18 12:57 IMPRESSION: Multifocal pneumonia, with the greatest involvement seen in the right middle lobe with air bronchograms and patchy areas of consolidation. There are also inflammatory appearing pulmonary nodules, which are new from a recent comparison study on 03/08/2018. No pleural effusion or pneumothorax is identified. No spiculated lung mass or pathologically enlarged lymph nodes in the chest. Multiple small mediastinal lymph nodes may be reactive. Endobronchial material is seen within the left mainstem bronchus extending into the left lower lobe bronchus which may be related to aspirated secretions. Previous pulmonary nodule follow-up recommendations were provided on the CT study on 03/08/2018, at which point the largest noncalcified pulmonary nodule identified measured approximately 5 mm, which in a low risk patient would require no routine follow-up, or in a high risk patient, an optional CT at 12 months is recommended. The largest 5 mm pulmonary nodule is again identified today in the left lower lobe. The new pulmonary nodules appear inflammatory in nature. D/ / 04/03/2018 16:11:29 Garrick Castillo MD / [email or web address] Interpreting Provider: Garrick Castillo MD Consult Discharge Plan - Plan Referrals: Landon Champion MD [Primary Care Provider] -
[2018-04-03 19:01] LABS: Appearance of Body Fluid Clear (Clear); Appearance of Body Fluid Hazy (Clear); Volume of Body Fluid 15 mL
[2018-04-03] MEDS: cefTRIAXone 1,000 MG in Water for inj. (sterile) 20 ML 10 ML IVP SCH (20:17)
[2018-04-03] MEDS: rOPINIRole 1 MG TABLET PO SCH (20:18)
[2018-04-04] MEDS: Ipratropium/Albuterol Neb 3 ML IH SCH ×2 (04:09→10:55)
[2018-04-04 05:54] VITALS: BP 141/69
[2018-04-04] MEDS: *HR* Enoxaparin 40 MG/0.4 ML SYRINGE SQ SCH (06:22)
[2018-04-04] MEDS: 0.9 % Sodium Chloride 500 ML IVC SCH (07:22)
--- NOTE | 2018-04-04 07:43 | Pulmonology Progress Note ---
Date of Encounter: 04/04/18 Time of Encounter: 07:42 Assessment and Plan (1) Bronchial stenosis Current Visit: Yes Status: Acute Impression 1. Pneumonia 2. AECOPD 3. Bronchial Stenosis. Recs: 1. Levquin 750mg daily x 7 days pending cultures from bronch 2. Cont BDs Prednisone 40mg daily x 7 days with plan to taper by 10mg weekly until 10mg or until pulmonary f/u 3. Plan for Outpatient bronch for balloon dilation. Patient agrees with plan. F/u Pulmonary in 1 week at D/C Pulm will s/o please call with questions (2) Pneumonia Current Visit: Yes Status: Acute Qualifiers: Laterality: bilateral Lung location: unspecified part of lung Qualified Code(s): J18.9 - Pneumonia, unspecified organism (3) COPD exacerbation Current Visit: Yes Status: Acute Subjective Principal diagnosis: Pneumonia Interval history: She states that she is breathing much better today. Denies any hemoptysis or untoward effects status post bronchoscopy Objective PUL Vital signs: Last Vital Signs Temp 97.7 F 04/03/18 21:33 Pulse 81 04/04/18 05:53 Resp 19 04/04/18 05:53 BP 141/69 04/04/18 05:53 Pulse Ox 96 04/04/18 05:53 General appearance: no acute distress Effort: normal Auscultation: bilateral: rhonchi (Scattered in both lung blackmon but generally improved aeration) Cardiovascular: regular rate and rhythm Gastrointestinal: normoactive bowel sounds Integumentary: normal Extremities: no cyanosis, no edema Musculoskeletal: no deformities normal mental status, non-focal exam Results - Laboratory Findings CBC and BMP: 04/03/18 06:02 04/03/18 06:02 Abnormal lab findings: Abnormal lab results Plt Count 138 K/mcL (140-400) L 04/03/18 06:02 Immature Plt Fraction 7.2 % (1.1-6.1) H 04/03/18 06:02 Sodium 133 mEq/L (136-145) L 04/03/18 06:02 Carbon Dioxide 21 mEq/L (23-29) L 04/03/18 06:02 BUN/Creatinine Ratio 29 (6-26) H 04/03/18 06:02 Glucose 117 mg/dL (70-105) H 04/03/18 06:02 POC Glucose 100 mg/dL (70-99) H 04/03/18 07:00 Calculated Osmolality 279 (280-300) L 04/03/18 06:02 Total Bilirubin 1.2 mg/dL (0.3-1.0) H 04/02/18 11:27 Alkaline Phosphatase 129 Units/L (34-104) H 04/02/18 11:27 Globulin 4.1 g/dL (2.4-3.5) H 04/02/18 11:27 Ur Specimen Adequacy See below A 04/02/18 12:40 Urine Clarity Cloudy (Clear) A 04/02/18 12:40 Urine Protein 100 mg/dL (Neg-Trace) H 04/02/18 12:40 Urine Ketones Trace mg/dL (Negative) H 04/02/18 12:40 Urine Bilirubin Small (Negative) H 04/02/18 12:40 Ur Leukocyte Esterase Moderate (Negative) H 04/02/18 12:40 Urine Microscopic WBC 5-15 per hpf (0-3) H 04/02/18 12:40 Ur Squamous Epith Cells Many per lpf (None-Few) H 04/02/18 12:40 Urine Bacteria Many per hpf (None-Few) H 04/02/18 12:40 Ur Culture Indicated? NO. (NO) A 04/02/18 12:40 Fluid Appearance Hazy (Clear) A 04/03/18 10:54 - Microbiology Findings Microbiology Findings: Microbiology, Last 48 Hours 04/03/18 10:54 Gram Stain - Final Left Lower Lobe Lung 04/03/18 10:54 Gram Stain - Final Right Middle Lobe Lung 04/02/18 14:05 Blood Culture - Preliminary Peripheral Venipuncture Culture is incubating and being continuously monitored for growth. Final report to follow. 04/02/18 14:05 Blood Culture - Preliminary Peripheral Venipuncture Culture is incubating and being continuously monitored for growth. Final report to follow. - Clinical Findings Intake & Output: Intake & Output 04/03/18 04/03/18 04/04/18 15:59 23:59 07:59 Intake Total 1000 / 1000 240 / 240 Output Total 300 / 300 450 / 450 300 / 300 Balance 700 / 700 -210 / -210 -300 / -300 Weight 110 kg Consult Discharge Plan - Plan Referrals: Landon Champion MD [Primary Care Provider] -
[2018-04-04] MEDS: Aspirin 81 MG TAB.CHEW PO SCH (08:34)
[2018-04-04] MEDS: MethylPREDNISolone 40 MG/ML VIAL IVP SCH (08:34)
[2018-04-04 11:21] LABS: Hematocrit 40.4 % (35.3-44.9); Hemoglobin 13.1 g/dL (11.5-15.4); Immature Granulocytes % 0.3 % (0-4); Lymphocytes # 0.6 K/mcL (0.6-4.6); Lymphocytes % 8.3 %; Mean Corpuscular HGB Conc 32.4 g/dL (31.6-35.5); Mean Corpuscular Hemoglobin 27.9 pg (28.0-33.3); Mean Platelet Volume 11.1 fL (9.4-12.4); Monocytes # 0.2 K/mcL (0.0-1.3); Monocytes % 2.8 %; Neutrophils # 6.1 K/mcL (1.6-8.9); Platelet Count 161 K/mcL (140-400); Red Cell Distribution Width 13.7 % (11.5-14.5); Segmented Neutrophils % 88.6 %
[2018-04-04 11:38] LABS: BUN/Creatinine Ratio 21 (6-26); Blood Urea Nitrogen 13 mg/dL (8-23); Calcium 9.6 mg/dL (8.6-10.3); Carbon Dioxide 23 mEq/L (23-29); Chloride 103 mEq/L (98-107); Glucose 142 mg/dL (70-105); Osmolality,Calculated 281 (280-300); Potassium 4.1 mEq/L (3.5-5.1); Sodium 134 mEq/L (136-145); eGFR For African Americans > 60 (> 60); eGFR For Non-African Americans > 60 (> 60)
--- NOTE | 2018-04-04 12:38 | Discharge Summary ---
- NOTES TO OUTPATIENT PROVIDER Notes to Outpatient Provider: Patient to complete 7 day course of Levaquin, steroid taper and to follow-up with pulmonology as an outpatient Orders not resulted at time of discharge: Pending orders 04/02/18 14:04 Culture,Sputum with Gram Stain [RM] Routine 04/02/18 17:37 Immunoglobulin E Stat Immunoglobulins IgG IgA IgM Urgent Procalcitonin Routine 04/03/18 10:54 AFB Culture, Respiratory [TB] Routine AFB Culture, Respiratory [TB] Routine Culture,Respiratory [RM] Routine Culture,Respiratory [RM] Routine Fungal Culture [MYC] Routine Fungal Culture [MYC] Routine Gram Stain [RM] Routine 04/03/18 11:13 Cytology [PTH] Routine Date of Encounter: 04/04/18 Time of Encounter: 11:00 - Discharge Diagnosis (1) Bronchial stenosis Priority: Primary Status: Acute (2) COPD exacerbation Priority: Primary Status: Acute (3) Community acquired pneumonia Priority: Primary Status: Acute Qualifiers: Lung location: unspecified part of lung Qualified Code(s): J18.9 - Pneumonia, unspecified organism (4) Hemoptysis Priority: Secondary Status: Acute (5) Hypothyroidism Priority: Secondary Status: Acute Qualifiers: Hypothyroidism type: unspecified Qualified Code(s): E03.9 - Hypothyroidism , unspecified Hospital course: Patient is a 62-year-old female with past medical history significant for COPD, hypothyroid and tracheal stenosis/bronchial malacia who presents to the ER on 04/02/18 due to shortness of breath. She reports of recent onset of shortness of breath with productive cough in addition to feeling very weak. Patient also reported of fever with a MAXIMUM TEMPERATURE of 102. Patient decided to come to the ER for evaluation. During patients hospital stay she was treated for pneumonia and COPD exacerbation with IV steroids and IV antibiotics. Pulmonology was consulted with recommendation for bronchoscopy which was done and showed ignificant bilateral bronchial stenosis primarily noted in the left upper lobe where there was near complete obstruction of the left upper lobe takeoff off the left mainstem bronchus. Pulmonology with recommendations to discharge patient on a 7 day course of Levaquin and a steroid taper. Patient will follow-up with pulmonology as an outpatient. Time spent discussing smoking cessation with patient: 3 to 10 minutes - Time Spent with Patient Total time spent providing and/or coordinating discharge services: - Discharge Medications Prescriptions: Levofloxacin [Levaquin] 750 mg PO DAILY #7 tablet predniSONE [PredniSONE] 10 mg PO DAILY #70 tablet Home Medications: Albuterol Sulfate [Proair Hfa] 2 puff IH Q4H PRN 09/16/16 [History] Budesonide/Formoterol 160/4.5 [Symbicort 160/4.5] 2 puff IH BIDR 09/16/16 [ History] Escitalopram [Lexapro] 20 mg PO DAILY 09/16/16 [History] Imipramine HCl [Tofranil] 25 mg PO HS 09/16/16 [History] Levothyroxine [Levothyroxine Sodium] 137 mcg PO DAILY 09/16/16 [History] Meloxicam [Mobic] 15 mg PO DAILY 09/16/16 [History] Ropinirole HCl [Requip] 0.5 mg PO HS 09/16/16 [History] Desmopressin Acetate [Ddavp] 0.2 mg PO HS 01/28/18 [History] Levofloxacin [Levaquin] 750 mg PO DAILY #7 tablet 04/04/18 [Rx] predniSONE [PredniSONE] 10 mg PO DAILY #70 tablet 04/04/18 [Rx] Allergies/Adverse Reactions: 3 Allergy/AdvReac Type Severity Reaction Status Date / Time morphine Allergy Redness of Verified 01/28/18 11:05 Skin Iodinated Contrast- Oral and AdvReac Flushing Verified 01/28/18 11:05 IV Dye Date of admission: 04/02/18 13:57 Primary care physician: Landon Champion MD Consults: 04/02/18 14:20 Consult to Pulmonology [CONS] Routine Consulting Provider: Jaime Arevalo Reason for Consult: Pneumonia, bronchomalacia Call Completed: Yes - Constitutional Vitals: Temp Pulse Resp BP Pulse Ox 97.7 F 81 19 141/69 96 04/03/18 21:33 04/04/18 05:53 04/04/18 05:53 04/04/18 05:53 04/04/18 05:53 General appearance: Present: no acute distress - Respiratory Respiratory exam: Present: CTAB. Absent: accessory muscle use, rales, rhonchi, wheezes - Patient Status Disposition: Home, Self-Care Condition: Good - Discharge Instructions Instructions: Prednisone (By mouth), Levofloxacin (By mouth), Chronic Obstructive Pulmonary Disease (DC), Pneumonia (DC) Follow Up With: Landon Champion MD [Primary Care Provider] -
[2018-04-05 08:32] LABS: Immunoglobulin A 142 mg/dL (68-408); Immunoglobulin G 1110 mg/dL (768-1632); Immunoglobulin M 81 mg/dL (35-263)
--- NOTE | 2018-04-06 09:43 | Electrocardiograph Report ---
[address] [address] Test Date: 2018-04-04 Pat Name: Letty Naylor Department: 111 Room: 2NE20 Gender: F Cotton Inspector: MARYURI : 1955 Requested By: Srinivas Salguero Order Number: [id number] Reading MD: Scot Treviño Measurements Intervals Alba Rate: 73 P: 1 PA: 135 QRS: 7 QRSD: 89 T: 58 QT: 402 QTc: 427 Interpretive Statements SINUS RHYTHM Electronically Signed On 04-06-2018 9:41:57 EDT by Scot Treviño
== END 2018-04-04 14:48 | disposition home or self-care (01) | DRG 166 ==
LOC: 2NENU 11:03 → EMEROO 11:03 → SUATTDRO 13:57 → 2NENU 14:37
PROVIDERS: ADMIT Internal Medicine; ATTEND Hospitalist